=== PATIENT | female | born 1930 | race Caucasian/White ===

== ENCOUNTER 2016-09-01 13:20 | Emergency (ER) | payer MEDICARE ==
[~2016-09-01] VITALS: Ht 165.1 cm; Wt 69.9 kg
[~2016-09-01 13:20] MED LIST: AMOX500C3 PO; ASPEC81 PO; CHOL400C7 PO; CZR25 PO; EZET10TA63 PO; FSM70 PO; ISOS30TA51 PO; LEVO25TA PO; METO25TA3 PO; OMEP20CA59 PO; PRAV20TA PO; VENL150T33 PO
[2016-09-01 13:27] VITALS: TEMP 36.6; Ht 165.1 cm; Wt 69.9 kg
--- NOTE | 2016-09-01 14:08 | DIAGNOSTIC IMAGING REPORT ---
Right wrist 4 views CLINICAL HISTORY: FALL, RT WRIST DEFORMITY Right. Right wrist pain. COMPARISON STUDY: None. FINDINGS: Distal radius and ulnar fractures demonstrating both dorsal displacement and angulation. The distal radius fracture demonstrates 8 mm of dorsal displacement and 1 cm of overlap. The bones are osteopenic. The carpal bones appear intact. The distal radius fracture is slightly comminuted but does not clearly demonstrate intra-articular extension. Severe osteoarthritis at the first carpometacarpal joint. Diffuse soft tissue swelling. IMPRESSION: Displaced distal right radius and ulnar fractures as described above. Electronically signed by: Wilian Rios M.D. 09/01/2016 2:06 PM Dictated Date/Time: 09/01/2016 2:03 PM
--- NOTE | 2016-09-01 14:25 | EMERGENCY ROOM VISIT NOTE ---
History Report prepared by Vince: Javi Small Under the Supervision of: Dr. Emily Prakash D.O. First contact with patient: 13:31 Chief Complaint: FALL Stated Complaint: FALL/WRIST PAIN History of Present Illness The patient is a 86 year old female who presents to the Emergency Room after a fall that occurred prior to arrival. The patient was pushing her chair back trying to get up from the table when she fell down. She thinks she reached out and tried to put her hand out to catch her fall. She complains of right wrist pain that she rates as an 8 out of 10 in severity. She denies hitting her head, knee pain, or any other medical complaints at this time. Source of History: patient Onset: prior to arrival Position: wrist (right) Symptom Intensity: 8/10 in severity Note: Other associated symptoms: wrist pain Denies: hitting her head, knee pain, or any other medical complaints at this time Review of Systems See HPI for pertinent positives & negatives. A total of 10 systems reviewed and were otherwise negative. Past Medical & Surgical Medical Problems: (1) Benign essential hypertension (2) Carotid artery stenosis (3) Carotid bruit (4) Cerebrovascular disease (5) Chronic osteoarthritis (6) Depression (7) Mitral valve regurgitation (8) Osteoporosis (9) presyncope (10) Vitamin D deficiency Family History No pertinent family history Social History Smoking Status: Never Smoker Alcohol Use: none Marital Status: Housing Status: lives alone Occupation Status: retired Current/Historical Medications Scheduled Aspirin (Aspirin Ec), 81 MG PO DAILY Cholecalciferol (Vitamin D3), 1 TAB PO DAILY Donepezil Hydrochloride (Aricept), 10 MG PO DAILY Ezetimibe (Zetia), 10 MG PO DAILY Isosorbide Mononitrate Ext Rel (Imdur Ext Rel), 30 MG PO DAILY Levothyroxine Sodium (Synthroid), 50 MCG PO DAILY Metoprolol Succinate (Toprol Xl), 0.5 TAB PO DAILY Omeprazole (Prilosec), 20 MG PO HS Pravastatin Sodium (Pravachol), 1 TAB PO QPM Selenium Sulfide (Selsun Blue), 1 APPLN TOP 3XWK Venlafaxine Hcl (Venlafaxine Hcl Er), 150 MG PO DAILY Scheduled PRN Acetaminophen Tab (Tylenol), 650 MG PO Q4 PRN for Pain or Fever Jpudfja-Sxqdiph-Utctxw Salicyl (Bengay Ultra Strength), 1 APPLN TOP BID PRN for Pain Oxycodone Ir (Roxicodone Ir), 5 MG PO Q6H PRN for Pain Allergies Coded Allergies: Codeine (Verified Allergy, Mild, 09/01/16) Egg (Verified Allergy, Mild, `, 09/01/16) Physical Exam Vital Signs Date Time Temp Pulse Resp B/P Pulse Ox O2 Delivery O2 Flow Rate FiO2 09/01/16 18:14 70 20 130/70 99 09/01/16 15:09 63 20 191/78 97 Room Air 09/01/16 13:27 36.6 61 20 168/77 97 Room Air Physical Exam HEENT: Head - normocephalic and atraumatic. Pupils are equal, round, and reactive to light. Extraocular eye muscles are intact and sclera are anicteric. Ears - bilaterally patent canals with no evidence of hemotympanum. Nose - moist nasal mucosa without evidence of trauma or discharge. Mouth - moist buccal mucosa with no trauma to the teeth or signs of malocclusion. Neck: The neck is supple and there is no pain to palpation over the posterior cervical spine and no obvious step-offs or deformities. There is no JVD or tracheal deviation. Chest: There are no signs of deformities, contusions or abrasions to the chest wall. There is no obvious crepitus or paradoxical chest rise. Heart: Regular, rate, and rhythm. There is a normal S1 and S2 with no murmurs, clicks, or gallops appreciated. Lungs: Clear to auscultation bilaterally with no wheezes, rales, or rhonchi. Abdomen: Soft, completely nontender, nondistended, with good bowel sounds. There is no sign of trauma such as contusions, abrasions or penetrations. There are no palpable pulsatile masses or hepatosplenomegaly. There is no guarding, rigidity, or rebound noted. Pelvis: Stable to rock and compression. Extremities: Right wrist deformity. Good radial pulses. No other signs of trauma. There are easily palpable peripheral pulses. Neuro: The patient is awake and alert. She has a history of dementia. She is moving all 4 extremities. Otherwise, neuro exam is unremarkable. Medical Decision & Procedures ER Provider Diagnostic Interpretation: X-ray results as stated below per interpretation by me and the radiologist: Right wrist 4 views CLINICAL HISTORY: FALL, RT WRIST DEFORMITY Right. Right wrist pain. COMPARISON STUDY: None. FINDINGS: Distal radius and ulnar fractures demonstrating both dorsal displacement and angulation. The distal radius fracture demonstrates 8 mm of dorsal displacement and 1 cm of overlap. The bones are osteopenic. The carpal bones appear intact. The distal radius fracture is slightly comminuted but does not clearly demonstrate intra-articular extension. Severe osteoarthritis at the first carpometacarpal joint. Diffuse soft tissue swelling. IMPRESSION: Displaced distal right radius and ulnar fractures as described above. Electronically signed by: Wilian Rios M.D. 09/01/2016 2:06 PM Dictated Date/Time: 09/01/2016 2:03 PM Medications Administered Medications (Trade) Dose Ordered Sig/Qiana Route Start Time Stop Time Status Last Admin Dose Admin Oxycodone HCl (Roxicodone Immediate Rel Tab) 5 mg NOW STAT PO 09/01/16 14:43 09/01/16 14:44 DC 09/01/16 15:07 5 MG Procedure Medications: Oxycodone HCl PO ED Course 1350: Past medical records reviewed. The patient was evaluated in room C2. A complete history and physical exam was performed. The patient went for x-ray of the right wrist. 1443: Ordered Oxycodone HCl 5 mg PO. I reviewed the results of the x-ray with the patient 1545: At this time, I discussed the patient's case with Carl Pandey PA-C - [employer] [facility] and he agreed to accept the patient for further evaluation. 1600: Ordered Lidocaine HCl 20 ml INFIL For a hematoma block. Carl was able to reduce the fracture. The patient will follow-up with Dr. Jacobsen next week. Medical Decision The patient is an 86 year old female who presents to the ED with wrist pain. Differential diagnosis includes forearm fracture, wrist fracture, and hand fracture. The patient suffered a fall at [facility]. She did not strike her head or lose consciousness. She has no other signs of trauma except for the right wrist. She has no other complaints of pain. The patient was given a prescription of oxycodone to use for pain. She will follow up with orthopedics next week. [facility] Drug Monitoring Program Search Results: patient reviewed within database, no issues identified Consults Time Called: 1540 Consulting Physician: Carl Wall PA-C- [facility] Returned Call: [phone] At this time, I discussed the patient's case with Carl Pandey PA-C and he agreed to accept the patient for further evaluation. Impression Primary Impression: Wrist fracture Additional Impression: Fall Scribe Attestation The scribe's documentation has been prepared under my direction and personally reviewed by me in its entirety. I confirm that the note above accurately reflects all work, treatment, procedures, and medical decision making performed by me. Departure Information Dispostion Being Evaluated By Hospitalist (Carl Pandey PA-C - [facility]) Prescriptions Oxycodone Ir (Roxicodone Ir) 5 Mg Tab 5 MG PO Q6H Y for Pain, #20 TAB Prov: Emily Prakash D.O. 09/01/16 Referrals [facility] (PCP) Patient Instructions My [facility] Additional Instructions Rest with the right wrist elevated. Apply ice. Follow up with Ortho as directed. Use Oxy-IR every 6 hours for pain. Problem Qualifiers
[2016-09-01] MEDS ORDERED: ACET325T96 PO (14:41)
[2016-09-01] MEDS ORDERED: CHOL1000 PO (14:41)
[2016-09-01] MEDS ORDERED: ISOS30TA3 PO (14:41)
[2016-09-01] MEDS ORDERED: DONE10TA12 PO (14:41)
[2016-09-01] MEDS ORDERED: PRAV40TA PO (14:41)
[2016-09-01] MEDS ORDERED: LEVO50TA PO (14:41)
[2016-09-01] MEDS ORDERED: ASPI81TA28 PO (14:41)
[2016-09-01] MEDS ORDERED: OXYCODONE HCL IR 5 MG TAB (IMMEDIATE RELEASE) PO STA (14:43)
[2016-09-01] MEDS ORDERED: SELE1SHA3 TOP (14:44)
[2016-09-01] MEDS ORDERED: LINICRE52 TOP (14:44)
[2016-09-01] MEDS ORDERED: XYLOCAINE 1%/SOD BICARB 20 ML VIAL INFIL ONE (16:00)
[2016-09-01] MEDS ORDERED: OXYC1TAB3 PO (16:12)
--- NOTE | 2016-09-01 17:32 | DIAGNOSTIC IMAGING REPORT ---
RIGHT WRIST 2 VIEW CLINICAL HISTORY: Fracture status post reduction COMPARISON: 09/01/2016 DISCUSSION: There is been interval reduction of the previously identified fractures of the distal radius and ulna.r the distal radial fracture demonstrates 4 mm of radial displacement and 4 mm of dorsal displacement. The articular surface demonstrates 2 degrees of dorsal tilt there is been application of a fiberglass cast. There are advanced degenerative changes within the first carpometacarpal joint. IMPRESSION: Interval reduction of the recently described fractures of the radius and ulna with application of a fiberglass cast Electronically signed by: Sebastian Bennett M.D. 09/01/2016 5:30 PM Dictated Date/Time: 09/01/2016 5:27 PM
[2016-09-01 18:14] VITALS: BP 130/70; PULSE 70; O2SAT 99
--- NOTE | 2016-09-01 19:52 | CONSULTATION REPORT ---
DATE OF CONSULTATION: 09/01/2016 REASON FOR CONSULT: Right wrist fracture. HISTORY OF PRESENT ILLNESS: The patient is an 86-year-old white female who resides at [facility] in [place]. She does not really remember much of how she had fallen; however, her previous notes from Dr. Prakash's initial exam states that she was thinking she was pushing her chair back trying to get up from the table when she had fallen down. She doesn't remember hitting her head; denies LOC. Denies SOB, CP prior to the fall. She had a notable deformity to her right wrist and pain and unable to move the wrist and she was brought to the Emergency Room. She was seen by the staff, x-rays were taken and it was found that she had a displaced right distal radius and ulna fracture of the right wrist. We have been consulted to take care of her wrist fracture at this time. PAST MEDICAL HISTORY: Hypertension, carotid artery stenosis, cerebral vascular disease, osteoarthritis, depression, mitral valve regurgitation, osteoporosis, history of presyncope ,vitamin D deficiency and question of dementia. MEDICATIONS: Aspirin 81 mg p.o. daily, vitamin D3 one tab p.o. daily, Aricept 10 mg p.o. daily, Zetia 10 mg p.o. daily, Imdur extended release 30 mg p.o. daily, levothyroxine 50 mcg p.o. daily, metoprolol 1/2 tab p.o. daily, omeprazole 20 mg at bedtime, pravastatin 1 tab p.o. q.p.m., Selsun blue 1 application topically 3 times a week, venlafaxine extended release 150 mg p.o. daily, acetaminophen 650 mg p.o. q. 4 hours p.r.n. pain or fever, BenGay 1 application topically b.i.d. p.r.n., OxyIR 5 mg p.o. q. 6 hours p.r.n. pain. ALLERGIES: CODEINE AND EGGS. REVIEW OF SYSTEMS: As per Emergency Room history and physical. PHYSICAL EXAMINATION: VITAL SIGNS: Done at 3:00 showed pulse 63, respirations 20, BP 191/78, pulse ox 97% on room air. GENERAL: The patient is an elderly white female who appears her stated age. She is awake and alert but somewhat confused to place and time and remembering her fall that she had had previously during the day. Again, she is pleasant and cooperative and complaining some pain in her right wrist, although she states it is much better since having a pain medication given to her. EXTREMITIES: On examination of her right upper extremity, she has a noted a bag of ice over her right wrist. Upon removing the bag of ice, she has a moderate deformity of the distal radius and ulna. She was tender on palpation over these areas and has mild to moderate swelling noted with just a hint of ecchymosis beginning. She is able to move all her fingers of her right hand. She has good sensation of all 5 fingers and capillary refill is less than 2 seconds. She is obviously unable to move the wrist. She denies any pain in her right elbow and/or right shoulder. There are no open wounds noted next to the area of fracture. ASSESSMENT: Displaced right distal radius and ulna fracture. PLAN: The patient will need a closed reduction and splinting with follow up in Dr. Jacobsen's office next week. PROCEDURES IN THE EMERGENCY ROOM: The patient's right wrist was injected over the dorsal area with 0.5% lidocaine without epinephrine, a hematoma block was achieved and was given a few moments to let the medication work. At point in time, the patient's right hand was placed in finger traps and some initial amount of 10 pounds of weight was applied to the sling that had been placed around her right elbow. At that point in time, the wrist slowly reduced and an additional 5 pounds was added for a brief time to complete the reduction. A small amount of longitudinal traction was applied to the right wrist to completely finish getting the wrist back into a better position. The patient tolerated the procedure well and at that time a sugar tong splint was applied to the right upper extremity without difficulty. After the splint was applied, she was noted to have good sensation of all fingers of the right hand. She was still moving her fingers of her right hand very well and capillary refill was less than 2 seconds. FINAL PLAN: The patient has already been set up to return to [facility]. She has been given a prescription for pain medication by Dr. Prakash and patient will be directed to Dr. Jacobsen's office next week for definitive care of her right wrist fracture. OLIVIA
== END 2016-09-01 18:17 | disposition home or self-care (01) ==
LOC: EDBD 13:20 → C.EDC 13:22
DX: S52.501A Unspecified fracture of the lower end of right radius, initial encounter for closed fracture (principal); S52.601A Unspecified fracture of lower end of right ulna, initial encounter for closed fracture; W19.XXXA Unspecified fall, initial encounter; Y92.199 Unspecified place in other specified residential institution as the place of occurrence of the external cause; I10 Essential (primary) hypertension; F32.9 Major depressive disorder, single episode, unspecified; M81.0 Age-related osteoporosis without current pathological fracture; E55.9 Vitamin D deficiency, unspecified; Z79.82 Long term (current) use of aspirin; Z79.899 Other long term (current) drug therapy

== ENCOUNTER → 2016-10-26 | Outpatient (CLI) | payer MEDICARE ==
[~2016-10-26] MED LIST changes: +ACET325T96 PO; -AMOX500C3 PO; -ASPEC81 PO; +ASPI81TA28 PO; +CHOL1000 PO; -CHOL400C7 PO; -CZR25 PO; +DONE10TA12 PO; -FSM70 PO; +ISOS30TA3 PO; -ISOS30TA51 PO; -LEVO25TA PO; +LEVO50TA PO; +LINICRE52 TOP; +OXYC1TAB3 PO; -PRAV20TA PO; +PRAV40TA PO; +SELE1SHA3 TOP
[2016-10-27 15:44] LABS: URINE APPEARANCE TURBID (CLEAR); URINE BILIRUBIN NEG (NEG); URINE COLOR DK YELLOW; URINE EPITHELIAL CELL AUTO >30 /lpf (0-5); URINE NITRITE NEG (NEG); URINE SPECIFIC GRAVITY 1.031 (1.000-1.030); UROBILINOGEN NEG (NEG)
[2016-10-27 15:46] LABS: MANUAL MICROSCOPIC REQUIRED? NO; REVIEW REQ? YES
== END | disposition home or self-care (01) ==
LOC: C.LABSPEC 16:10
PROVIDERS: ATTEND Internal Medicine
DX: R41.0 Disorientation, unspecified (principal)

== ENCOUNTER → 2016-12-20 | Outpatient (CLI) | payer MEDICARE ==
[2016-12-20 12:40] LABS: HEMATOCRIT 41.1 % (37-47); MEAN CELL VOLUME 98.1 fL (80-100); MEAN CORPUSCULAR HEMOGLOBIN 30.8 pg (25-34); MEAN CORPUSCULAR HGB CONC 31.4 g/dl (32-36); MEAN PLATELET VOLUME 9.8 fL (7.4-10.4); PLATELET COUNT 289 K/uL (130-400); RED BLOOD COUNT 4.19 M/uL (4.2-5.4); WHITE BLOOD COUNT 6.46 K/uL (4.8-10.8)
[2016-12-20 13:08] LABS: BLOOD UREA NITROGEN 22 mg/dl (7-18); BUN/CREATININE RATIO 22.1 (10-20); CALCIUM 9.3 mg/dl (8.5-10.1); CARBON DIOXIDE 26 mmol/L (21-32); CHLORIDE 113 mmol/L (98-107); GLUCOSE 84 mg/dl (70-99); POTASSIUM 4.1 mmol/L (3.5-5.1); SODIUM 146 mmol/L (136-145)
[2016-12-20 13:21] LABS: THYROID STIMULATING HORMONE 0.608 uIu/ml (0.300-4.500)
== END | disposition home or self-care (01) ==
LOC: C.LABSPEC 11:14
PROVIDERS: ATTEND Internal Medicine
DX: E03.9 Hypothyroidism, unspecified (principal)

== ENCOUNTER → 2017-05-18 | Outpatient (CLI) | payer MEDICARE ==
[~2017-05-18] MED LIST changes: -OXYC1TAB3 PO
[2017-05-18 14:53] LABS: URINE APPEARANCE CLOUDY (CLEAR); URINE BILIRUBIN NEG (NEG); URINE COLOR YELLOW; URINE NITRITE NEG (NEG); URINE SPECIFIC GRAVITY 1.015 (1.000-1.030); UROBILINOGEN NEG (NEG); ZZUR CULT IF INDIC CLEAN CATCH YES
[2017-05-18 14:56] LABS: MANUAL MICROSCOPIC REQUIRED? NO; REVIEW REQ? YES
== END | disposition home or self-care (01) ==
LOC: C.LABOUTLO 13:55
PROVIDERS: ATTEND Internal Medicine
DX: Z01.89 Encounter for other specified special examinations (principal)

== ENCOUNTER 2017-07-10 11:43 | Emergency (ER) | payer MEDICARE ==
[2017-07-10 11:47] VITALS: TEMP 36.4
--- NOTE | 2017-07-10 12:15 | DIAGNOSTIC IMAGING REPORT ---
CT SCAN OF THE BRAIN WITHOUT IV CONTRAST CLINICAL HISTORY: Fall. COMPARISON STUDY: CT of the brain dated 04/15/2013. TECHNIQUE: Unenhanced axial CT scan of the brain is performed from the vertex to the skull base. FINDINGS: Brain parenchyma: There are age-related involutional changes noting moderate confluent subcortical and periventricular microangiopathic change. There is no hemorrhage, mass effect, or evidence of acute territorial ischemia by CT criteria. Chronic lacunar infarcts identified in the caudate heads and the right thalamus. Arana-white matter is preserved. No extra-axial fluid collection is seen. Ventricles, sulci, cisterns: Prominent secondary to involutional change. Intracranial vasculature: There is atherosclerotic calcification of the cavernous carotid and vertebral arteries. Calvarium: The skeletal structures are osteopenic. No depressed calvarial fracture is seen. Sinuses and mastoids: There is chronic-appearing/calcified debris within left sphenoid sinus. The remaining visualized paranasal sinuses are clear. The mastoid air cells are well pneumatized. Orbits: The bony orbits are grossly intact. There are bilateral ocular lens implants. IMPRESSION: Senescent changes as above with no hemorrhage, mass effect, or evidence of acute territorial ischemia by CT criteria. Electronically signed by: Navarro Valerio M.D. 07/10/2017 12:13 PM Dictated Date/Time: 07/10/2017 12:11 PM
--- NOTE | 2017-07-10 12:23 | EMERGENCY ROOM VISIT NOTE ---
History Report prepared by Vince: Carol Arguelles Under the Supervision of: Dr. Geovanny Krishnamurthy D.O. 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 She is a resident in the dementia unit at [facility]. Per EMS, the patient had a witnessed fall this morning. She fell backwards and hit her head with no LOC. Per nursing staff, the patient is at her baseline mental status. She denies headache, vision changes, weakness/numbness in legs, nausea, vomiting, or diarrhea. She denies any pain or injury to joints or extremities. HPI is limited secondary to patient 's dementia. 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 Past Medical & Surgical Medical Problems: (1) Benign essential hypertension (2) Carotid artery stenosis (3) Carotid bruit (4) Cerebrovascular disease (5) Chronic osteoarthritis (6) Depression (7) Mitral valve regurgitation (8) Osteoporosis (9) presyncope (10) Vitamin D deficiency Family History No pertinent family history Social History Smoking Status: Never Smoker Alcohol Use: none Marital Status: Housing Status: lives alone Occupation Status: retired Current/Historical Medications Scheduled Aspirin (Aspirin Ec), 81 MG PO DAILY Cholecalciferol (Vitamin D3), 1 TAB PO DAILY Donepezil Hydrochloride (Aricept), 10 MG PO DAILY Ezetimibe (Zetia), 10 MG PO DAILY Isosorbide Mononitrate Ext Rel (Imdur Ext Rel), 30 MG PO DAILY Levothyroxine Sodium (Synthroid), 50 MCG PO DAILY Metoprolol Succinate (Toprol Xl), 0.5 TAB PO DAILY Omeprazole (Prilosec), 20 MG PO HS Pravastatin Sodium (Pravachol), 1 TAB PO QPM Selenium Sulfide (Selsun Blue), 1 APPLN TOP 3XWK Venlafaxine Hcl (Venlafaxine Hcl Er), 150 MG PO DAILY Scheduled PRN Acetaminophen Tab (Tylenol), 650 MG PO Q4 PRN for Pain or Fever Rsgvxct-Yooesrq-Vswslq Salicyl (Bengay Ultra Strength), 1 APPLN TOP BID PRN for Pain Allergies Coded Allergies: Codeine (Verified Allergy, Mild, 09/01/16) Egg (Verified Allergy, Mild, `, 09/01/16) Morphine (Verified Allergy, Mild, ukn, 07/10/17) listed on pt's paperwork from [facility] Sulfamethoxazole w/Trimethoprim (Unverified Allergy, Mild, uk, 07/10/17) listed on pt's paperwork from [facility] Uncoded Allergies: EGG PRODUCTS (Allergy, Mild, ukn, 07/10/17) listed on pt's paperwork from [facility] FLU VACCINATION (Allergy, Unknown, [facility], 07/10/17) listed on pt's paperwork from [facility] Physical Exam Vital Signs Date Time Temp Pulse Resp B/P (MAP) Pulse Ox O2 Delivery O2 Flow Rate FiO2 07/10/17 13:37 163/68 07/10/17 12:48 60 16 155/72 98 Room Air 07/10/17 11:47 36.4 62 16 158/58 95 Room Air Physical Exam GENERAL: Sitting up in bed. No acute distress. Non-toxic. HEAD: Contusion to posterior occiput. EYE EXAM: normal conjunctiva, PERRL and EOM's grossly intact OROPHARYNX: no exudate, no erythema, lips, buccal mucosa, and tongue normal and mucous membranes are moist NOSE: No septal hematoma. NECK: supple, no nuchal rigidity, no adenopathy, non-tender CHEST: stable to compression anteriorly and posteriorly LUNGS: clear to auscultation. Normal chest wall mechanics HEART: no murmurs, S1 normal and S2 normal ABDOMEN: abdomen soft, non-tender, normo-active bowel sounds, no masses, no rebound or guarding. PELVIS: stable to compression anteriorly and posteriorly BACK: Back is symmetrical on inspection and there is no deformity, no midline tenderness, no CVA tenderness. UPPER EXTREMITIES: full active and passive range of motion of all joints without tenderness to palpation LOWER EXTREMITIES: full active and passive range of motion of all joints without tenderness to palpation NEURO EXAM: Awake, alert and follows commands. At baseline per report. No focal deficits. Medical Decision & Procedures ER Provider Diagnostic Interpretation: Radiology results as stated below per my review and the radiologist's interpretation: CT SCAN OF THE BRAIN WITHOUT IV CONTRAST CLINICAL HISTORY: Fall. COMPARISON STUDY: CT of the brain dated 04/15/2013. TECHNIQUE: Unenhanced axial CT scan of the brain is performed from the vertex to the skull base. FINDINGS: Brain parenchyma: There are age-related involutional changes noting moderate confluent subcortical and periventricular microangiopathic change. There is no hemorrhage, mass effect, or evidence of acute territorial ischemia by CT criteria. Chronic lacunar infarcts identified in the caudate heads and the right thalamus. Arana-white matter is preserved. No extra-axial fluid collection is seen. Ventricles, sulci, cisterns: Prominent secondary to involutional change. Intracranial vasculature: There is atherosclerotic calcification of the cavernous carotid and vertebral arteries. Calvarium: The skeletal structures are osteopenic. No depressed calvarial fracture is seen. Sinuses and mastoids: There is chronic-appearing/calcified debris within left sphenoid sinus. The remaining visualized paranasal sinuses are clear. The mastoid air cells are well pneumatized. Orbits: The bony orbits are grossly intact. There are bilateral ocular lens implants. IMPRESSION: Senescent changes as above with no hemorrhage, mass effect, or evidence of acute territorial ischemia by CT criteria. Electronically signed by: Navarro Valerio M.D. 07/10/2017 12:13 PM Dictated Date/Time: 07/10/2017 12:[address] DOSE: 908.92 mGy.cm HISTORY: Neck pain. fall hit head TECHNIQUE: Multiaxial CT images of the cervical spine were performed and reformatted in the sagittal and coronal plane without the use of contrast. A dose lowering technique was utilized adhering to the principles of ALARA. COMPARISON: None. FINDINGS: No fractures identified within the cervical spine. Moderate to severe disc space narrowing at C5-T1. Mild disc space narrowing at C4-C5. There is 2.5 mm of anterolisthesis of C4 and C5. This favors long-standing degenerative change. Moderate to severe facet osteoarthritis. A few of the right lower cervical spine facets are fused. The C1-C2 interval and prevertebral soft tissues are intact. No pneumothorax. IMPRESSION: No fractures within the cervical spine. Degenerative changes as described above. Electronically signed by: Wilian Rios M.D. 07/10/2017 12:27 PM Dictated Date/Time: 07/10/2017 12:19 PM ED Course ED COURSE: Vital signs were reviewed and showed situational. The patients medical record was reviewed The above diagnostic studies were performed and reviewed. ED treatments and interventions as stated above. 1144: The patient was evaluated in room C6. A complete history and physical examination was performed. 1236: Upon reevaluation, the patient is doing well. She will be discharged home to [facility]. Based on the patients age, coexisting illnesses, exam and lab findings the decision to treat as an outpatient was made. The patient remained stable while under my care. The patient appeared well at the time of discharge. Medical Decision Differential diagnoses include major intracranial, cervical, spinal, thoracic, abdominal, pelvic and neurologic injury. Fracture, contusion, sprain, strain, laceration, abrasions included as well. Patient is an 87-year-old female who presents to ER following a mechanical [facility] She is from the dementia unit. Patient does not recall events secondary to dementia.. There was no loss consciousness. Patient has no complaints. CT head and cervical spine were negative. Per report at her baseline. Nonfocal moving all extremities. She is updated at bedside and discharged back to dementia unit. Discussed with Pt concerning signs and symptoms to watch out for. Pt was instructed to follow up with their PCP and discussed with the patient their option to return to the ED at anytime for persistent or worsening symptoms. The appropriate anticipatory guidance and out-patient management, including indications for return to the emergency department, were explained at length to the patient and understood. Medication Reconcilliation Current Medication List: was personally reviewed by me Blood Pressure Screening Patient's blood pressure: Elevated blood pressure Blood pressure disposition: Elevated BP felt to be situational Impression Primary Impression: Fall Additional Impression: Head contusion Scribe Attestation The scribe's documentation has been prepared under my direction and personally reviewed by me in its entirety. I confirm that the note above accurately reflects all work, treatment, procedures, and medical decision making performed by me. Departure Information Dispostion Home / Self-Care [facility] Forms HOME CARE DOCUMENTATION FORM, IMPORTANT VISIT INFORMATION Patient Instructions Falls Preventing, My [facility] Additional Instructions Please follow up with your primary care doctor with in the next 24 hours. Any worsening of your symptoms, please return to the ED immediately. This includes any fevers greater than 100.4, worsening pain, confusion, persistent nausea or vomiting, weakness or numbness in arms or legs, or any other concerning signs or symptoms from your standpoint. Please take Tylenol as needed for pain. Problem Qualifiers Primary Impression: Fall Encounter type: sequela Qualified Codes: W19.XXXS - Unspecified fall, sequela Additional Impression: Head contusion Encounter type: initial encounter Contusion of head detail: unspecified part of head Qualified Codes: S00.93XA - Contusion of unspecified part of head , initial encounter
--- NOTE | 2017-07-10 12:28 | DIAGNOSTIC IMAGING REPORT ---
CERVICAL SPINE CT CT DOSE: 908.92 mGy.cm HISTORY: Neck pain. fall hit head TECHNIQUE: Multiaxial CT images of the cervical spine were performed and reformatted in the sagittal and coronal plane without the use of contrast. A dose lowering technique was utilized adhering to the principles of ALARA. COMPARISON: None. FINDINGS: No fractures identified within the cervical spine. Moderate to severe disc space narrowing at C5-T1. Mild disc space narrowing at C4-C5. There is 2.5 mm of anterolisthesis of C4 and C5. This favors long-standing degenerative change. Moderate to severe facet osteoarthritis. A few of the right lower cervical spine facets are fused. The C1-C2 interval and prevertebral soft tissues are intact. No pneumothorax. IMPRESSION: No fractures within the cervical spine. Degenerative changes as described above. Electronically signed by: Wilian Rios M.D. 07/10/2017 12:27 PM Dictated Date/Time: 07/10/2017 12:19 PM
[2017-07-10 12:48] VITALS: PULSE 60; O2SAT 98
[2017-07-10 13:37] VITALS: BP 163/68
== END 2017-07-10 13:38 | disposition home or self-care (01) ==
LOC: EDBD 11:43 → C.EDC 11:44
DX: S00.93XA Contusion of unspecified part of head, initial encounter (principal); W19.XXXA Unspecified fall, initial encounter; W22.8XXA Striking against or struck by other objects, initial encounter; F03.90 Unspecified dementia, unspecified severity, without behavioral disturbance, psychotic disturbance, mood disturbance, and anxiety; I10 Essential (primary) hypertension; M19.90 Unspecified osteoarthritis, unspecified site; M81.0 Age-related osteoporosis without current pathological fracture; E55.9 Vitamin D deficiency, unspecified; F32.9 Major depressive disorder, single episode, unspecified; Z79.82 Long term (current) use of aspirin; Z79.899 Other long term (current) drug therapy

== ENCOUNTER 2017-08-20 11:08 | Emergency (ER) | payer MEDICARE ==
[~2017-08-20] VITALS: Ht 157.5 cm; Wt 59.7 kg
[2017-08-20 11:15] VITALS: TEMP 36.5; Ht 157.5 cm; Wt 59.7 kg
[2017-08-20] MEDS ORDERED: LORA-741 PO (11:38)
[2017-08-20] MEDS ORDERED: ASPCH81X PO (11:42)
--- NOTE | 2017-08-20 12:07 | EMERGENCY ROOM VISIT NOTE ---
History Report prepared by Vince: Carol Arguelles Under the Supervision of: Dr. Zoraida Covarrubias M.D. 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 Per nursing staff, the patient had an unwitnessed fall possibly during the night. The patient was found in bed with a laceration to the forehead and bruising to the eyebrow. The patient has her forehead wrapped in gauze. The patient is unsure of how she fell , though states that she may have slipped on a floor. The patient lives at [facility]. She denies any hip pain, abdominal pain, leg pain, back pain. HPI is limited secondary to patient's mental state. 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 She denies any hip pain or leg pain. Review of Systems ROS is limited secondary to patient's mental state. Past Medical & Surgical Medical Problems: (1) Benign essential hypertension (2) Carotid artery stenosis (3) Carotid bruit (4) Cerebrovascular disease (5) Chronic osteoarthritis (6) Depression (7) Mitral valve regurgitation (8) Osteoporosis (9) presyncope (10) Vitamin D deficiency Family History No pertinent family history Social History Smoking Status: Unknown if Ever Smoked Alcohol Use: none Marital Status: Housing Status: lives alone Occupation Status: retired Current/Historical Medications Scheduled Aspirin (Aspirin Chewable), 81 MG PO QAM Cholecalciferol (Vitamin D3), 1,000 UNITS PO DAILY Donepezil Hydrochloride (Aricept), 10 MG PO DAILY Ezetimibe (Zetia), 10 MG PO DAILY Isosorbide Mononitrate Ext Rel (Imdur Ext Rel), 30 MG PO DAILY Levothyroxine Sodium (Synthroid), 50 MCG PO DAILY Metoprolol Succinate (Toprol Xl), 12.5 MG PO QAM Omeprazole (Prilosec), 20 MG PO QAM Pravastatin Sodium (Pravachol), 40 MG PO QAM Venlafaxine Hcl (Venlafaxine Hcl Er), 150 MG PO DAILY Scheduled PRN Acetaminophen Tab (Tylenol), 650 MG PO Q4 PRN for Pain or Fever Lorazepam (Ativan), 0.25 MG PO Q8 PRN for Anxiety Allergies Coded Allergies: Codeine (Verified Allergy, Mild, 08/20/17) Egg (Verified Allergy, Mild, `, 08/20/17) Morphine (Verified Allergy, Mild, ukn, 08/20/17) listed on pt's paperwork from [facility] Sulfamethoxazole w/Trimethoprim (Unverified Allergy, Mild, ukn, 08/20/17) listed on pt's paperwork from [facility] Uncoded Allergies: EGG PRODUCTS (Allergy, Mild, ukn, 07/10/17) listed on pt's paperwork from [facility] FLU VACCINATION (Allergy, Unknown, [facility], 07/10/17) listed on pt's paperwork from [facility] Physical Exam Vital Signs Date Time Temp Pulse Resp B/P (MAP) Pulse Ox O2 Delivery O2 Flow Rate FiO2 08/20/17 14:40 76 18 167/96 98 08/20/17 13:05 59 08/20/17 11:15 36.5 67 20 206/88 98 Room Air Physical Exam Vital signs reviewed. General: Pleasantly confused, in no significant distress. HEENT: No scleral icterus, PERRLA, neck supple. Atraumatic. Large hematoma to left forehead along the superior orbital ridge. Small skin tear, no active bleeding. Some ecchymosis to inferior orbital region. Cardiovascular: Regular rate and rhythm, no extra sounds. Pulmonary: Clear to auscultation bilaterally, normal work of breathing. Abdomen: Soft, nontender, nondistended, positive bowel sounds. Musculoskeletal: Atraumatic, no peripheral edema. Pelvis is stable, no tenderness with ROM of hips. Neurologic: Patient awake alert and pleasantly confused, equal strength in all 4 extremities. Cranial nerves 2 through 12 grossly intact. Skin: Warm, dry, no rash Medical Decision & Procedures ER Provider Diagnostic Interpretation: Radiology results as stated below per my review and radiologist interpretation: CHEST ONE VIEW PORTABLE CLINICAL HISTORY: fall trauma COMPARISON STUDY: 05/08/2011 FINDINGS: Lungs are clear. Chronic pleural reactive changes left base. Diaphragms are smooth. IMPRESSION: Chronic change. No acute process. The above report was generated using voice recognition software. It may contain grammatical, syntax or spelling errors. Electronically signed by: Stanley Salinas M.D. 08/20/2017 12:11 PM Dictated Date/Time: 08/20/2017 12:10 PM HEAD WITHOUT CONTRAST (CT) CT DOSE: 537.48 mGy.cm HISTORY: Trauma. Mental status change. fall, CHI TECHNIQUE: Multiaxial CT images of the head were performed without the use of intravenous contrast. A dose lowering technique was utilized adhering to the principles of ALARA. Comparison: 07/10/2017 Findings: The paranasal sinuses and mastoid air cells are clear. Left periorbital and left prefrontal extracranial soft tissue edematous change. Small amount of air within the soft tissues presumably posttraumatic. No well-defined acute bony abnormality. Findings of scattered areas of atrophy atrophy and encephalomalacia chronic basis. No acute intracranial hemorrhage. No midline shift. Small old pre-existing infarct basal ganglia on the right. Impression: 1. Chronic intracranial changes with no acute intracranial abnormality. 2. extracranial soft tissue edema/hematoma in the left prefrontal and periorbital region. The above report was generated using voice recognition software. It may contain grammatical, syntax or spelling errors. Electronically signed by: Stanley Salinas M.D. 08/20/2017 12:33 PM Dictated Date/Time: 08/20/2017 12:30 PM Laboratory Results 08/20/17 12:43 Red Blood Count 4.18, Mean Corpuscular Volume 96.9, Mean Corpuscular Hemoglobin 31.3, Mean Corpuscular Hemoglobin Concent 32.3, Mean Platelet Volume 9.7, Neutrophils (%) (Auto) 89.5, Lymphocytes (%) (Auto) 5.6, Monocytes (%) (Auto) 3.7, Eosinophils (%) (Auto) 0.8, Basophils (%) (Auto) 0.2, Neutrophils # (Auto) 11.95, Lymphocytes # (Auto) 0.74, Monocytes # (Auto) 0.49, Eosinophils # (Auto) 0.11, Basophils # (Auto) 0.02 08/20/17 12:43 Test 08/20/17 12:43 White Blood Count 13.33 K/uL (4.8-10.8) Red Blood Count 4.18 M/uL (4.2-5.4) Hemoglobin 13.1 g/dL (12.0-16.0) Hematocrit 40.5 % (37-47) Mean Corpuscular Volume 96.9 fL (80-100) Mean Corpuscular Hemoglobin 31.3 pg (25-34) Mean Corpuscular Hemoglobin Concent 32.3 g/dl (32-36) Platelet Count 274 K/uL (130-400) Mean Platelet Volume 9.7 fL (7.4-10.4) Neutrophils (%) (Auto) 89.5 % Lymphocytes (%) (Auto) 5.6 % Monocytes (%) (Auto) 3.7 % Eosinophils (%) (Auto) 0.8 % Basophils (%) (Auto) 0.2 % Neutrophils # (Auto) 11.95 K/uL (1.4-6.5) Lymphocytes # (Auto) 0.74 K/uL (1.2-3.4) Monocytes # (Auto) 0.49 K/uL (0.11-0.59) Eosinophils # (Auto) 0.11 K/uL (0-0.5) Basophils # (Auto) 0.02 K/uL (0-0.2) RDW Standard Deviation 49.2 fL (36.4-46.3) RDW Coefficient of Variation 13.9 % (11.5-14.5) Immature Granulocyte % (Auto) 0.2 % Immature Granulocyte # (Auto) 0.02 K/uL (0.00-0.02) Prothrombin Time 10.8 SECONDS (9.0-12.0) Prothromb Time International Ratio 1.0 (0.9-1.1) Activated Partial Thromboplast Time 23.5 SECONDS (21.0-31.0) Partial Thromboplastin Ratio 0.9 Anion Gap 4.0 mmol/L (3-11) Est Creatinine Clear Calc Drug Dose 25.9 ml/min Estimated GFR () 47.2 Estimated GFR (Non- 40.7 BUN/Creatinine Ratio 20.9 (10-20) Calcium Level 9.1 mg/dl (8.5-10.1) Magnesium Level 2.3 mg/dl (1.8-2.4) Total Bilirubin 0.3 mg/dl (0.2-1) Direct Bilirubin < 0.1 mg/dl (0-0.2) Aspartate Amino Transf (AST/SGOT) 20 U/L (15-37) Alanine Aminotransferase (ALT/SGPT) 23 U/L (12-78) Alkaline Phosphatase 85 U/L (45-117) Total Protein 7.2 gm/dl (6.4-8.2) Albumin 3.5 gm/dl (3.4-5.0) Laboratory results per my review. ECG Indication: other (fall) Rate (beats per minute): 66 Rhythm: sinus with SA Findings: LBBB, left axis deviation Comparison ECG Date: LBBB is new when compared to 03/16/2012 ED Course 1135: Past medical records reviewed. The patient was evaluated in room C5. A complete history and physical examination was performed. 1330: I reassessed the patient at this time. She is feeling better and resting comfortably. I discussed the results and treatment plan with the patient. I answered all pertaining questions that she had. She expressed understanding and verbalized agreement. The patient will be discharged home. Medical Decision Differential diagnosis: Etiologies such as fracture, dislocation, intra-abdominal, pneumothorax, intrathoracic , intracranial, neurologic, as well as other traumatic pathologies were entertained. This patient was evaluated and appeared to be in no significant distress. Physical examination is consistent with a closed head injury. CT scan of the head reveals no evidence of acute intracranial abnormality. EKG reveals a sinus rhythm with a left bundle-branch block this does appear to be new however it is compared to an EKG in 2012. Although patient is suffering from memory impairment, she seems to be asymptomatic. Chest x-ray is clear. Laboratory work is unrevealing. I suspect the patient's hypertension is related to situational stressors. The patient will be discharged back to [facility] for further care. Patient's son is at the bedside. They were encouraged to see her primary care provider as soon as possible for follow-up. She will return to the ER for worsening of symptoms or any medical concerns. Medication Reconcilliation Current Medication List: was personally reviewed by me Blood Pressure Screening Patient's blood pressure: Elevated blood pressure Blood pressure disposition: Elevated BP felt to be situational Impression Primary Impression: Closed head injury Additional Impression: Fall Scribe Attestation The scribe's documentation has been prepared under my direction and personally reviewed by me in its entirety. I confirm that the note above accurately reflects all work, treatment, procedures, and medical decision making performed by me. Departure Information Dispostion Home / Self-Care Referrals [facility] (PCP) Forms HOME CARE DOCUMENTATION FORM, IMPORTANT VISIT INFORMATION Patient Instructions My [facility] Additional Instructions Diagnosis: Closed head injury, fall Wash the abrasion with warm water and soap once daily and apply antibiotic ointment with a dressing. Your tetanus status is up-to-date, no further immunizations were given during this visit. Monitor for signs of head injury including vomiting, mental status changes, severe headache. Return to the emergency department. Follow-up with her primary care physician within the next several days for reevaluation. Return to the ER for worsening of symptoms or any medical concerns. Problem Qualifiers
--- NOTE | 2017-08-20 12:12 | DIAGNOSTIC IMAGING REPORT ---
CHEST ONE VIEW PORTABLE CLINICAL HISTORY: fall trauma COMPARISON STUDY: 05/08/2011 FINDINGS: Lungs are clear. Chronic pleural reactive changes left base. Diaphragms are smooth. IMPRESSION: Chronic change. No acute process. The above report was generated using voice recognition software. It may contain grammatical, syntax or spelling errors. Electronically signed by: Stanley Salinas M.D. 08/20/2017 12:11 PM Dictated Date/Time: 08/20/2017 12:10 PM
--- NOTE | 2017-08-20 12:35 | DIAGNOSTIC IMAGING REPORT ---
HEAD WITHOUT CONTRAST (CT) CT DOSE: 537.48 mGy.cm HISTORY: Trauma. Mental status change. fall, CHI TECHNIQUE: Multiaxial CT images of the head were performed without the use of intravenous contrast. A dose lowering technique was utilized adhering to the principles of ALARA. Comparison: 07/10/2017 Findings: The paranasal sinuses and mastoid air cells are clear. Left periorbital and left prefrontal extracranial soft tissue edematous change. Small amount of air within the soft tissues presumably posttraumatic. No well-defined acute bony abnormality. Findings of scattered areas of atrophy atrophy and encephalomalacia chronic basis. No acute intracranial hemorrhage. No midline shift. Small old pre-existing infarct basal ganglia on the right. Impression: 1. Chronic intracranial changes with no acute intracranial abnormality. 2. extracranial soft tissue edema/hematoma in the left prefrontal and periorbital region. The above report was generated using voice recognition software. It may contain grammatical, syntax or spelling errors. Electronically signed by: Stanley Salinas M.D. 08/20/2017 12:33 PM Dictated Date/Time: 08/20/2017 12:30 PM
[2017-08-20 12:58] LABS: BASO % 0.2 %; BASO ABS # 0.02 K/uL (0-0.2); EOS % 0.8 %; EOS ABS # 0.11 K/uL (0-0.5); HEMATOCRIT 40.5 % (37-47); HEMOGLOBIN 13.1 g/dL (12.0-16.0); IG# 0.02 K/uL (0.00-0.02); LYMPH % 5.6 %; LYMPH ABS # 0.74 K/uL (1.2-3.4); MEAN CELL VOLUME 96.9 fL (80-100); MEAN CORPUSCULAR HEMOGLOBIN 31.3 pg (25-34); MEAN CORPUSCULAR HGB CONC 32.3 g/dl (32-36); MEAN PLATELET VOLUME 9.7 fL (7.4-10.4); MONO % 3.7 %; MONO ABS # 0.49 K/uL (0.11-0.59); NEUT % 89.5 %; NEUT ABS # 11.95 K/uL (1.4-6.5); PLATELET COUNT 274 K/uL (130-400); RED CELL DISTRIBUTION WIDTH CV 13.9 % (11.5-14.5); RED CELL DISTRIBUTION WIDTH SD 49.2 fL (36.4-46.3); WHITE BLOOD COUNT 13.33 K/uL (4.8-10.8)
[2017-08-20 13:12] LABS: PTT PATIENT 23.5 SECONDS (21.0-31.0)
[2017-08-20 13:18] LABS: ALBUMIN 3.5 gm/dl (3.4-5.0); ALT/SGPT 23 U/L (12-78); AST/SGOT 20 U/L (15-37); BLOOD UREA NITROGEN 25 mg/dl (7-18); CALCIUM 9.1 mg/dl (8.5-10.1); CARBON DIOXIDE 29 mmol/L (21-32); CREATININE 1.19 mg/dl (0.60-1.20); GLUCOSE 113 mg/dl (70-99); POTASSIUM 4.4 mmol/L (3.5-5.1); SODIUM 140 mmol/L (136-145)
[2017-08-20 13:21] LABS: ALKALINE PHOSPHATASE 85 U/L (45-117); TOTAL PROTEIN 7.2 gm/dl (6.4-8.2)
[2017-08-20 14:40] VITALS: BP 167/96; PULSE 76; O2SAT 98
== END 2017-08-20 14:42 | disposition home or self-care (01) ==
LOC: EDBD 11:08 → C.EDC 11:10
DX: S09.90XA Unspecified injury of head, initial encounter (principal); W19.XXXA Unspecified fall, initial encounter; I10 Essential (primary) hypertension; M81.0 Age-related osteoporosis without current pathological fracture; E55.9 Vitamin D deficiency, unspecified; F32.9 Major depressive disorder, single episode, unspecified; Z79.82 Long term (current) use of aspirin; Z79.899 Other long term (current) drug therapy

== ENCOUNTER 2019-01-23 11:13 | Inpatient (IN) ==
[2019-01-23] MEDS ORDERED: SODIUM CHLORIDE 0.9% 1000ML 1,000 ML IV ONE (12:05)
[2019-01-23 12:12] LABS: iSTAT Creatinine 1.4 mg/dl (0.6-1.3); iSTAT Hemoglobin 13.9 g/dl (12.0-16.0); iSTAT Ionized Calcium 1.16 mmol/l (1.12-1.32); iSTAT Potassium 4.9 mEq/L (3.3-5.0)
[2019-01-23 12:13] LABS: Basophils # (auto) 0.02 K/uL (0-0.2); Basophils % (auto) 0.2 %; Eosinophils # (auto) 0.21 K/uL (0-0.5); Eosinophils % (auto) 2.1 %; Hematocrit (blood only) 42.2 % (37-47); Hemoglobin 13.6 g/dL (12.0-16.0); Immature Granulocytes # (auto) 0.03 K/uL (0.00-0.02); Immature Granulocytes % (auto) 0.3 %; Lymphocytes # (auto) 1.21 K/uL (1.2-3.4); Lymphocytes % (auto) 12.3 %; Mean Corpuscular Hgb Conc 32.2 g/dL (32-36); Mean Corpuscular Volume 97.2 fL (80-100); Mean Platelet Volume 9.6 fL (7.4-10.4); Monocytes # (auto) 0.64 K/uL (0.11-0.59); Monocytes % (auto) 6.5 %; Neutrophils # (auto) 7.69 K/uL (1.4-6.5); Neutrophils % (auto) 78.6 %; Platelet Count 253 K/uL (130-400); RDW Coefficient of Variation 13.5 % (11.5-14.5); RDW Standard Deviation 47.9 fL (36.4-46.3); Red Blood Count 4.34 M/uL (4.2-5.4)
[2019-01-23 12:28] LABS: Albumin Level 3.2 gm/dl (3.4-5.0); BUN Creatinine Ratio 18.1 (10-20); Creatinine Clr Calc Pharmacy 25.3 ml/min; Est GFR (African American) 42.1; Est GFR (Non-African American) 36.3; Magnesium 2.4 mg/dl (1.8-2.4)
[2019-01-23 12:47] LABS: Albumin Globulin Ratio 0.9 (0.9-2); Bilirubin,Total 0.4 mg/dl (0.2-1); Creatine Kinase MB 13.3 ng/ml (0.5-3.6); Globulin 3.5 gm/dl (2.5-4.0); Total Protein 6.7 gm/dl (6.4-8.2); Troponin I 1.55 ng/ml (0-0.045)
[2019-01-23] MEDS ORDERED: ASPIRIN CHEW 324 MG PO STA (12:58)
[2019-01-23] MEDS ORDERED: Heparin IV Standard *NO* Bolus IV ONE (12:58)
[2019-01-23] MEDS ORDERED: Heparin Adult STANDARD Wt-Based Dextrose 5% 25,000 units/500 mL IV SCH (12:59)
--- NOTE | 2019-01-23 13:03 | XRay Report ---
SINGLE VIEW CHEST CLINICAL HISTORY: Weakness. FINDINGS: An AP, portable, upright chest radiograph is compared to study dated 04/16/2018. The examinat ion is degraded by portable technique and patient rotation. The heart is enlarged and there is ather osclerotic calcification of the thoracic aorta. The pulmonary vasculature is noncongested. Chronic in terstitial thickening is similar to previous. A calcified granuloma is noted at the left apex. The gerry ngs and pleural spaces are otherwise clear. No pneumothorax is seen. The skeletal structures are oste openic. The bony thorax is grossly intact. IMPRESSION: Cardiomegaly with no active disease in the chest. Electronically signed by: Navarro Valerio M.D. 01/23/2019 1:02 PM
[2019-01-23 13:13] LABS: INR 1.1 (0.9-1.1); Partial Thromboplastin Ratio 0.8; Partial Thromboplastin Time 21.6 Seconds (21.0-31.0); Prothrombin Time 10.9 Seconds (9.0-12.0)
[2019-01-23] MEDS ORDERED: HEPARIN 25000 UNIT/500 ML D5W IV ONE (13:33)
[2019-01-23] MEDS ORDERED: Heparin IV Low Dose *NO* Bolus IV ONE (14:00)
--- NOTE | 2019-01-23 14:34 | History & Physical Report ---
Date of Service January 23, 2019 Assessment & Plan (1) Syncope: This is an 88-year-old female with a PMH of chronic systolic heart failure, valvular dysfunction, chronic left bundle branch block, CAD, Alzheimer's disease, CKD 3 and mood disorder who presents from [facility] care after a witnessed syncopal event this morning. Patient seen in collaboration with Dr. Torres. Please see addendum for plan. Syncope possible secondary to cardiac arrhythmia/bradycardia On the telemetry patient bradycardia down, leading to 4-second pause, Heart rate recovered but back to 50s Updated cardiology Plan of care discussed by cardiology with the patient's son Emmanuel Chaudhry, POA, does not want pacemaker, does not want any heroic major cardiac intervention Conservative approach only Patient is DNR/DNI We will avoid beta-clint AV node clint medications overall prognosis remains poor (2) Non-ST elevation CT (NSTEMI): Presented with syncope, possible secondary to the conduction delay/disturbance secondary to severe underlying coronary artery disease/non-ST elevated CT Found to have elevated troponin, new left bundle branch block noted on EKG Echo shows a new wall motion abnormality, worsening of EF 20% compared to echo done earlier this year updated family members, son Emmanuel Chaudhry and [id number] at bedside Understands the poor prognosis, Continue medical management, cardiology consulted, appreciate input (3) Chronic systolic (congestive) heart failure: Secondary to severe ischemic cardiomyopathy, Echocardiogram today 02/09/2009 shows significantly reduced ejection fraction wi th no wall motion abnormality Patient does not appear to be volume overloaded Avoid IV fluids, Clinically dry we will not order any IV Lasix at that point Overall prognosis remains guarded (4) CKD (chronic kidney disease), stage III: Follow renal function, and avoid contrast studies NSAID (5) Left bundle branch block: Secondary to non-ST elevated CT, new findings, with worsening of ejection fraction severe ischemic cardiomyopathy Poor prognosis (6) Carotid artery stenosis: Continue aspirin (7) Mood disorder: (8) Metabolic encephalopathy: Acute delirium, agitation after arrival to PCU Getting out of bed, throwing stuff at the nursing Trying to take IV sites off Requiring one-to-one observation Patient calmed down briefly well family son and daughter in law was visiting in room Discussed poor prognosis and progression of disease process, patient has baseline advanced dementia, developed acute agitation in the setting of acute CT, cardiac arrhythmia/ change of surroundings Continue to provide support, Patient takes scheduled dose of Ativan, ordered for PRN Ativan as needed watch for rebound agitation One-to-one observation when family is not present full fall risk CODE STATUS: Discussed with POA, son Emmanuel Chaudhry, DNR/DNI Does not want any heroic measures does not help want any intervention, medical management if possible for symptom control Disposition: Patient is a resident at [facility] Family is concerned as patient has been having progressive cognitive and functional decline will not be able to return back to [facility], already has been considering transition to [facility] Social service consulted for discharge planning assistance History of Present Illness Chief Complaint: Syncopal event at [facility] today Primary Care Provider: [facility] This is an 88-year-old female with a PMH of chronic systolic heart failure, valvular dysfunction, chronic left bundle branch block, CAD, Alzheimer's disease, CKD 3 and mood disorder who presents from [facility] after a witnessed syncopal event this morning. History primarily obtained from family at bedside and staff from [facility] over the phone due to patient's advanced dementia. Staff is reportedly getting patient up this morning and ready for the day when she sat down on the toilet and then lost consciousness. Staff were able to keep her from falling and she became responsive with sternal rub after approximately 1 minute. Was sent to ED for further evaluation. Patient initially tachycardic at 126. Saturating at 96% on room air. No leukocytosis. Hemoglobin stable at 13.6. Creatinine slightly elevated from baseline at 1.3 (baseline ~1.1). Troponin elevated at 1.55. Difficult to obtain ROS due to patient's dementia but she denies pain of any kind, including headache, chest pain or abdominal pain. Per facility, patient is able to ambulate with walker at baseline and eat independently. Has poor p.o. intake at baseline and supplements with boost drink twice daily. Is currently at cognitive baseline, per staff. Family at bedside (including medical POA) confirmed DNR status as well as desired to avoid intervention when possible. Allergies Allergy/AdvReac Type Severity Reaction Status Date / Time Bactrim Allergy Mild ukn Unverified 08/20/17 11:36 codeine Allergy Mild Unknown Verified 01/23/19 13:41 egg Allergy Mild ` Verified 01/23/19 13:41 morphine Allergy Mild ukn Verified 01/23/19 13:41 sulfamethoxazole Allergy Mild ukn Unverified 01/23/19 13:41 trimethoprim Allergy Mild ukn Unverified 01/23/19 13:41 EGG PRODUCTS Allergy Mild ukn Uncoded 01/23/19 13:41 FLU VACCINATION Allergy Unknown ukn Uncoded 01/23/19 13:41 Home Medications Home Medications Medication Instructions Recorded Confirmed Type acetaminophen 650 mg PO Q4 PRN 04/16/18 01/23/19 History aspirin [Aspirin Childrens] 81 mg PO DAILY 04/16/18 01/23/19 History cholecalciferol (vitamin D3) 1,000 unit PO DAILY 04/16/18 01/23/19 History [Vitamin D3] donepezil 10 mg PO DAILY 04/16/18 01/23/19 History ezetimibe 10 mg PO DAILY 04/16/18 01/23/19 History isosorbide mononitrate 30 mg PO DAILY 04/16/18 01/23/19 History levothyroxine 50 mcg PO DAILY 04/16/18 01/23/19 History lorazepam 0.5 mg PO DAILY 04/16/18 01/23/19 History metoprolol succinate 12.5 mg PO DAILY 04/16/18 01/23/19 History omeprazole 20 mg PO DAILY 04/16/18 01/23/19 History pravastatin 40 mg PO DAILY 04/16/18 01/23/19 History venlafaxine 150 mg PO DAILY 04/16/18 01/23/19 History food supplemt, lactose-reduced 180 ea PO BID 01/23/19 01/23/19 History [Ensure] Past Med/Surg History Family History Other Coronary heart disease Social History Preferred Language: Khmer Communication Ability: Effective Beliefs That Will Affect Care: None marital status: / Current Living Situation: Long Term Current Living Situation Comment: Dave current occupational status: retired Other Information That Helps Us Care for You: No Feels Safe at Home: Yes Safety Concerns: Feels Safe At This Time Smoking Status: Never smoker Hx Alcohol Use: No Hx Substance Use: No Review of Systems Review of Systems: Unobtainable due to cognitive status Physical Exam Physical Exam: General Appearance: WD/WN, no apparent distress, resting comfortably, pleasantly confused Head: normocephalic, atraumatic Eyes: normal inspection, PERRL, EOMI ENT: hearing grossly normal, pharynx normal (dry mucous membranes) Neck: supple, no JVD, no adenopathy Respiratory/Chest: lungs clear to auscultation. No wheezes, rales or rhonci. No respiratory distress or accessory muscle use Cardiovascular: tachycardic rhythm with gallop, systolic ejection murmur, normal peripheral pulses, no peripheral edema Abdomen/GI: normal bowel sounds, soft, non-tender to palpation Extremities/Musculoskelatal: normal inspection, no calf tenderness, normal capillary refill, no pedal edema Neurologic/Psych: alert & oriented to person only Skin: normal color, warm/dry Results & Data Vital Signs (Past 12 Hours) Vital Signs Temp Pulse Resp BP Pulse Ox 01/23/19 13:50 119 H 19 96 01/23/19 13:40 119 H 24 96 01/23/19 13:31 119 H 16 97 01/23/19 13:30 120 H 14 142/86 H 95 01/23/19 13:20 124 H 14 97 01/23/19 13:10 123 H 13 96 01/23/19 13:01 123 H 16 96 01/23/19 13:00 122 H 16 114/79 96 01/23/19 12:50 122 H 15 95 01/23/19 12:40 124 H 15 95 01/23/19 12:31 125 H 12 96 01/23/19 12:30 126 H 15 104/68 96 01/23/19 12:20 125 H 15 95 01/23/19 12:10 127 H 17 94 01/23/19 12:06 93 01/23/19 12:01 127 H 16 100/67 94 01/23/19 12:00 126 H 18 73/63 L 93 01/23/19 11:50 127 H 17 94 01/23/19 11:40 128 H 12 94 01/23/19 11:30 128 H 16 92 01/23/19 11:24 36.5 C 126 H 20 107/69 93 01/23/19 11:20 127 H 18 93 01/23/19 11:19 126 H 13 107/64 95 Laboratory Results Short CBC 01/23/19 01/23/19 01/23/19 Range/Units 11:53 11:56 11:56 WBC 9.80 (4.8-10.8) K/uL RBC 4.34 (4.2-5.4) M/uL Hgb 13.6 (12.0-16.0) g/dL POC Hgb (12.0-16.0) g/dl Hct 42.2 (37-47) % POC Hct (37-47) % MCV 97.2 (80-100) fL MCH 31.3 (25-34) pg MCHC 32.2 (32-36) g/dL RDW Std Deviation 47.9 H (36.4-46.3) fL RDW Coeff of Juan 13.5 (11.5-14.5) % Plt Count 253 (130-400) K/uL MPV 9.6 (7.4-10.4) fL Immature Gran % (Auto) 0.3 % Neut % (Auto) 78.6 % Lymph % (Auto) 12.3 % Allen % (Auto) 6.5 % Eos % (Auto) 2.1 % Baso % (Auto) 0.2 % Immature Gran # (Auto) 0.03 H (0.00-0.02) K/uL Neut # (Auto) 7.69 H (1.4-6.5) K/uL Lymph # (Auto) 1.21 (1.2-3.4) K/uL Allen # (Auto) 0.64 H (0.11-0.59) K/uL Eos # (Auto) 0.21 (0-0.5) K/uL Baso # (Auto) 0.02 (0-0.2) K/uL PT 10.9 (9.0-12.0) Seconds INR 1.1 (0.9-1.1) APTT 21.6 (21.0-31.0) Seconds PTT Ratio 0.8 POC Sodium (135-144) mEq/L Sodium 143 (136-145) mmol/L POC Potassium (3.3-5.0) mEq/L Potassium 5.0 (3.5-5.1) mmol/L POC Chloride (101-112) mEq/L Chloride 111 H (98-107) mmol/L Carbon Dioxide 30 (21-32) mmol/L POC Total CO2 (24-31) mEq/l Anion Gap 2.0 L (3-11) POC Anion Gap (16-25) mmol/L POC BUN (7-18) mg/dl BUN 24 H (7-18) mg/dl Creatinine 1.30 H (0.6-1.2) mg/dl POC Creatinine (0.6-1.3) mg/dl Est Cr Clr Drug Dosing 25.3 ml/min Est GFR ( Amer) 42.1 Est GFR (Non-Af Amer) 36.3 BUN/Creatinine Ratio 18.1 (10-20) Glucose 115 H (70-99) mg/dl POC Glucose (other) (70-99) mg/dl Calcium 9.0 (8.5-10.1) mg/dl POC Ioniz Calcium Kenji (1.12-1.32) mmol/l Magnesium 2.4 (1.8-2.4) mg/dl Total Bilirubin 0.4 (0.2-1) mg/dl AST 26 (15-37) U/L ALT 24 (12-78) U/L Alkaline Phosphatase 78 (45-117) U/L Total Creatine Kinase 108 (26-192) U/L CK-MB (CK-2) 13.3 H (0.5-3.6) ng/ml CK/CKMB % Calc 12.3 H (0-3.0) Troponin I 1.550 H* (0-0.045) ng/ml Total Protein 6.7 (6.4-8.2) gm/dl Albumin 3.2 L (3.4-5.0) gm/dl Globulin 3.5 (2.5-4.0) gm/dl Albumin/Globulin Ratio 0.9 (0.9-2) TSH 1.930 (0.300-4.500) uIu/ml 01/23/19 Range/Units 12:00 WBC (4.8-10.8) K/uL RBC (4.2-5.4) M/uL Hgb (12.0-16.0) g/dL POC Hgb 13.9 (12.0-16.0) g/dl Hct (37-47) % POC Hct 41 (37-47) % MCV (80-100) fL MCH (25-34) pg MCHC (32-36) g/dL RDW Std Deviation (36.4-46.3) fL RDW Coeff of Juan (11.5-14.5) % Plt Count (130-400) K/uL MPV (7.4-10.4) fL Immature Gran % (Auto) % Neut % (Auto) % Lymph % (Auto) % Allen % (Auto) % Eos % (Auto) % Baso % (Auto) % Immature Gran # (Auto) (0.00-0.02) K/uL Neut # (Auto) (1.4-6.5) K/uL Lymph # (Auto) (1.2-3.4) K/uL Allen # (Auto) (0.11-0.59) K/uL Eos # (Auto) (0-0.5) K/uL Baso # (Auto) (0-0.2) K/uL PT (9.0-12.0) Seconds INR (0.9-1.1) APTT (21.0-31.0) Seconds PTT Ratio POC Sodium 142 (135-144) mEq/L Sodium (136-145) mmol/L POC Potassium 4.9 (3.3-5.0) mEq/L Potassium (3.5-5.1) mmol/L POC Chloride 106 (101-112) mEq/L Chloride (98-107) mmol/L Carbon Dioxide (21-32) mmol/L POC Total CO2 26 (24-31) mEq/l Anion Gap (3-11) POC Anion Gap 16.0 (16-25) mmol/L POC BUN 25 H (7-18) mg/dl BUN (7-18) mg/dl Creatinine (0.6-1.2) mg/dl POC Creatinine 1.4 H (0.6-1.3) mg/dl Est Cr Clr Drug Dosing ml/min Est GFR ( Amer) Est GFR (Non-Af Amer) BUN/Creatinine Ratio (10-20) Glucose (70-99) mg/dl POC Glucose (other) 123 H (70-99) mg/dl Calcium (8.5-10.1) mg/dl POC Ioniz Calcium Kenji 1.16 (1.12-1.32) mmol/l Magnesium (1.8-2.4) mg/dl Total Bilirubin (0.2-1) mg/dl AST (15-37) U/L ALT (12-78) U/L Alkaline Phosphatase (45-117) U/L Total Creatine Kinase (26-192) U/L CK-MB (CK-2) (0.5-3.6) ng/ml CK/CKMB % Calc (0-3.0) Troponin I (0-0.045) ng/ml Total Protein (6.4-8.2) gm/dl Albumin (3.4-5.0) gm/dl Globulin (2.5-4.0) gm/dl Albumin/Globulin Ratio (0.9-2) TSH (0.300-4.500) uIu/ml BMP 01/23/19 11:56 Sodium 143 Potassium 5.0 Chloride 111 H Carbon Dioxide 30 BUN 24 H Creatinine 1.30 H Glucose 115 H Calcium 9.0 Cardiac Enzymes 01/23/19 Range/Units 11:56 Total Creatine Kinase 108 (26-192) U/L CK-MB (CK-2) 13.3 H (0.5-3.6) ng/ml Troponin I 1.550 H* (0-0.045) ng/ml Liver Function 01/23/19 Range/Units 11:56 Total Bilirubin 0.4 (0.2-1) mg/dl AST 26 (15-37) U/L ALT 24 (12-78) U/L Alkaline Phosphatase 78 (45-117) U/L Albumin 3.2 L (3.4-5.0) gm/dl Diagnostic Findings CXR: IMPRESSION: Cardiomegaly with no active disease in the chest. ECG Rhythm: sinus tachycardia Findings: + 1st degree AV block and + LBBB
--- NOTE | 2019-01-23 15:26 | CT Scan Report ---
CT head/brain wo con CLINICAL HISTORY: 88 years-old Female with syncope. Acute syncope TECHNIQUE: Multiple axial CT images of the head were obtained without contrast. A dose lowering tech nique was utilized adhering to the principles of ALARA. CT DOSE: 912.23 mGycm COMPARISON: Head CT 04/16/2018. FINDINGS: Motion degraded exam. No acute intracranial hemorrhage, midline shift, intracranial mass, hydrocephal us, territorial ischemia or abnormal extra-axial collection. Age-related involutional changes with ex vacuo ventriculomegaly. Patchy white matter hypodensities suggest chronic microvascular ischemic dis ease. Cerebral vascular calcifications are noted. 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 The calvarium is intact. Moderate mucosal thickening with air/secretions about the left sphenoid sin us. Mastoid air cells and middle ear cavities are clear. Soft tissues are unremarkable. Prior bilater al cataract repair. IMPRESSION: Motion degraded exam without acute intracranial abnormality identified. The above report was generated using voice recognition software. It may contain grammatical, syntax o r spelling errors. Electronically signed by: Torrey Pino M.D. 01/23/2019 3:25 PM
[2019-01-23] MEDS ORDERED: POLYETHYLENE (MIRALAX) 17 GM PACK PO PRN (15:41)
[2019-01-23] MEDS ORDERED: MAGNESIUM HYDROXIDE SUSP 30 ML UDC PO PRN (15:41)
[2019-01-23] MEDS ORDERED: ACETAMINOPHEN 325 MG TAB PO PRN (15:41)
[2019-01-23] MEDS ORDERED: NITROGLYCERIN SL 0.4 MG/TAB TAB SL PRN (15:41)
[2019-01-23] MEDS ORDERED: ALUMINUM/MAGNESIUM SUSP 30 ML UDC PO PRN (15:41)
[2019-01-23] MEDS ORDERED: METOPROLOL TARTRATE 1 MG/ML VIAL IV STA (16:07)
[2019-01-23] MEDS ORDERED: LORazepam 1 MG/2 ML VIAL IV STA (17:02)
--- NOTE | 2019-01-23 17:05 | Cardiology Consultation ---
Date of Consultation January 23, 2019 Assessment & Plan (1) Non-ST elevation [place] (NSTEMI): (2) Left bundle branch block: (3) Syncope: He 8-year-old female with a previously documented history of dementia presents with acute on chronic confusion, transient syncopal episode. She is awake now. She has a long-standing history of chronic left bundle branch block, and valvular heart disease including aortic stenosis mitral regurgitation tricuspid regurgitation for which the patient and her family had a long-standing history of electing for nonoperative management. On presentation she was found to have a mildly elevated troponin of 1.5. Agree with unfractionated heparin empirically for 48 hours for medical therapy of suspected non-ST segment elevation microinfarction. If she is taking oral medications will continue aspirin, isosorbide, metoprolol, pravastatin and Zetia. She just received a dose of IV beta-clint for her tachycardia. She is not a candidate for invasive cardiac procedure. History of Present Illness Attending Physician: Roseline Torres MD History of Present Illness Rehana Chaudhry is an 88 year old female seen in cardiology consultation per the request of Dr Torres for evaluation of elevated troponin. This is the first opportunity that I have had to meet the patient. Per the nursing staff, I unfortunately just missed her family. When I arrived to see her in the PCU in room 236-1 she was being supervised in a one-to-one fashion by a fa[employer] certified powerplant mechanic. The patient was agitated, combative, and I could not complete a physical exam as she started punching into the air. Per review of the recent outpatient note from our clinic performed by Stanley Decker PA-C, the patient has baseline dementia and is a resident of [facility]. The patient was reportedly transferred from the [facility] to the [facility] emergency department today. Staff there reported getting patient out of bed this morning and ready for the day and when she sat down on the toilet she reportedly lost consciousness. She became transiently unresponsive and became more responsive after 1 minute of sternal rub. Allergies Allergy/AdvReac Type Severity Reaction Status Date / Time Bactrim Allergy Mild ukn Unverified 08/20/17 11:36 codeine Allergy Mild Unknown Verified 01/23/19 13:41 egg Allergy Mild ` Verified 01/23/19 13:41 morphine Allergy Mild ukn Verified 01/23/19 13:41 sulfamethoxazole Allergy Mild ukn Unverified 01/23/19 13:41 trimethoprim Allergy Mild ukn Unverified 01/23/19 13:41 EGG PRODUCTS Allergy Mild ukn Uncoded 01/23/19 13:41 FLU VACCINATION Allergy Unknown ukn Uncoded 01/23/19 13:41 Home Medications Home Medications Medication Instructions Recorded Confirmed Type acetaminophen 650 mg PO Q4 PRN 04/16/18 01/23/19 History aspirin [Aspirin Childrens] 81 mg PO DAILY 04/16/18 01/23/19 History cholecalciferol (vitamin D3) 1,000 unit PO DAILY 04/16/18 01/23/19 History [Vitamin D3] donepezil 10 mg PO DAILY 04/16/18 01/23/19 History ezetimibe 10 mg PO DAILY 04/16/18 01/23/19 History isosorbide mononitrate 30 mg PO DAILY 04/16/18 01/23/19 History levothyroxine 50 mcg PO DAILY 04/16/18 01/23/19 History lorazepam 0.5 mg PO DAILY 04/16/18 01/23/19 History metoprolol succinate 12.5 mg PO DAILY 04/16/18 01/23/19 History omeprazole 20 mg PO DAILY 04/16/18 01/23/19 History pravastatin 40 mg PO DAILY 04/16/18 01/23/19 History venlafaxine 150 mg PO DAILY 04/16/18 01/23/19 History food supplemt, lactose-reduced 180 ea PO BID 01/23/19 01/23/19 History [Ensure] Patient History Family History Other Coronary heart disease Social History Preferred Language: Montenegrin Communication Ability: Effective Beliefs That Will Affect Care: None marital status: / Current Living Situation: Correction Current Living Situation Comment: [place] current occupational status: retired Other Information That Helps Us Care for You: No Feels Safe at Home: Yes Safety Concerns: Feels Safe At This Time Smoking Status: Never smoker Hx Alcohol Use: No Hx Substance Use: No Review of Systems Review of Systems: Unobtainable due to reduced consciousness Physical Exam Constitutional: + cachectic Respiratory: -Not performed due to patient's combativeness Cardiovascular: -Auscultation cannot be performed due to the patient's combativeness -No edema observed Neurologic: Not oriented to place. Combative Moves all 4 extremities. Results & Data Vital Signs (Past 12 Hours) Vital Signs Temp Pulse Pulse Resp BP BP Pulse Ox 01/23/19 16:25 36.3 C L 125 H 18 157/82 H 95 01/23/19 16:23 125 H 157/82 H 01/23/19 14:40 120 H 18 94 01/23/19 14:31 120 H 11 L 96 01/23/19 14:30 121 H 17 115/83 95 01/23/19 14:20 121 H 0 L 95 01/23/19 14:10 121 H 16 96 01/23/19 14:01 122 H 15 95 01/23/19 14:00 121 H 14 118/78 95 01/23/19 13:50 119 H 19 96 01/23/19 13:40 119 H 24 96 01/23/19 13:31 119 H 16 97 01/23/19 13:30 120 H 14 142/86 H 95 01/23/19 13:20 124 H 14 97 01/23/19 13:10 123 H 13 96 01/23/19 13:01 123 H 16 96 01/23/19 13:00 122 H 16 114/79 96 01/23/19 12:50 122 H 15 95 01/23/19 12:40 124 H 15 95 01/23/19 12:31 125 H 12 96 01/23/19 12:30 126 H 15 104/68 96 01/23/19 12:20 125 H 15 95 01/23/19 12:10 127 H 17 94 01/23/19 12:06 93 01/23/19 12:01 127 H 16 100/67 94 01/23/19 12:00 126 H 18 73/63 L 93 01/23/19 11:50 127 H 17 94 01/23/19 11:40 128 H 12 94 01/23/19 11:30 128 H 16 92 01/23/19 11:24 36.5 C 126 H 20 107/69 93 01/23/19 11:20 127 H 18 93 01/23/19 11:19 126 H 13 107/64 95 Laboratory Results Cardiac Enzymes 01/23/19 Range/Units 11:56 AST 26 (15-37) U/L CK-MB (CK-2) 13.3 H (0.5-3.6) ng/ml Troponin I 1.550 H* (0-0.045) ng/ml Coagulation 01/23/19 Range/Units 11:53 PT 10.9 (9.0-12.0) Seconds APTT 21.6 (21.0-31.0) Seconds CBC 01/23/19 Range/Units 11:56 WBC 9.80 (4.8-10.8) K/uL RBC 4.34 (4.2-5.4) M/uL Hgb 13.6 (12.0-16.0) g/dL Hct 42.2 (37-47) % Plt Count 253 (130-400) K/uL Neut # (Auto) 7.69 H (1.4-6.5) K/uL Lymph # (Auto) 1.21 (1.2-3.4) K/uL [place] # (Auto) 0.64 H (0.11-0.59) K/uL Eos # (Auto) 0.21 (0-0.5) K/uL Baso # (Auto) 0.02 (0-0.2) K/uL Comprehensive Metabolic Panel 01/23/19 Range/Units 11:56 Sodium 143 (136-145) mmol/L Potassium 5.0 (3.5-5.1) mmol/L Chloride 111 H (98-107) mmol/L Carbon Dioxide 30 (21-32) mmol/L BUN 24 H (7-18) mg/dl Creatinine 1.30 H (0.6-1.2) mg/dl Glucose 115 H (70-99) mg/dl Calcium 9.0 (8.5-10.1) mg/dl AST 26 (15-37) U/L ALT 24 (12-78) U/L Alkaline Phosphatase 78 (45-117) U/L Total Protein 6.7 (6.4-8.2) gm/dl Albumin 3.2 L (3.4-5.0) gm/dl Intake and Output 01/23/19 01/23/19 01/23/19 06:59 14:59 22:59 Intake Total 432.9 / 432.9 0 / 432.9 Balance 432.9 / 432.9 0 / 432.9 Intake: IV 432.9 / 432.9 0 / 432.9 Nss 1000ML 1,000 ml @ 999 mls/ 432.9 / 432.9 0 / 432.9 hr IV .Q1H1M ONE Rx#:[id number] Other: Weight 54.9 kg 52.6 kg Patient Weight 01/24/19 06:59 Weight 52.6 kg Diagnostic Findings EKG performed today 01/23/2019 at 1550 reveals left bundle branch block with sinus tachycardia 122 bpm EKG performed 01/23/2019 11:17 AM sinus tachycardia 127 bpm with left bundle branch block and resultant repolarization abnormalities. Compared to the prior EKG tracing performed as an outpatient on 07/11/2018, left bundle branch block was noted at that time, but the axis is somewhat changed on the present EKG tracing, and sinus tachycardia is now present. The patient cooperated for an echocardiogram that was performed earlier today. The septal motion was abnormal consistent with underlying left bundle branch block, there is focal hypokinesis noted of the posterior wall, and mild to moderate global hypokinesis otherwise with severe left ventricular systolic dysfunction, LVEF in the range of 20 to 25%. Mild to moderate aortic valve stenosis was present. Moderate to severe mitral regurgitation was noted. Mild aortic valve regurgitation was noted. Compared to the prior study performed in August 2018 as an outpatient, there is been interval decline in LVEF which was 35 to 39% at that time. Medications Administered Current Inpatient Medications Acetaminophen (Tylenol) 650 mg PO Q4H PRN PRN Reason: Pain or Fever Stop: 02/22/19 15:40 Al Hydrox/Mg Hydrox/Simethicone (Maalox) 15 ml PO Q4H PRN PRN Reason: Dyspepsia Stop: 02/22/19 15:40 Aspirin (Ecotrin Ectab) 81 mg PO QAM TIFFANY Stop: 02/23/19 08:59 Donepezil HCl (Aricept) 10 mg PO DAILY TIFFANY Stop: 02/23/19 08:59 Ezetimibe (Zetia) 10 mg PO DAILY [facility] Stop: 02/23/19 08:59 Heparin Sodium/Dextrose (Heparin Sodium/Dextrose) 25,000 units in 500 mls @ 20 mls/hr IV .Q24H TIFFANY; Protocol Stop: 02/22/19 12:58 Last Admin: 01/23/19 15:49 Dose: 1,000 units/hr, 20 mls/hr Documented by: Isosorbide Mononitrate (Imdur Extended Rel) 30 mg PO DAILY [facility] Stop: 02/23/19 08:59 Levothyroxine Sodium (Synthroid) 50 mcg PO DAILYBB [facility] Stop: 02/23/19 06:29 Lorazepam (Ativan) 0.5 mg PO DAILY TIFFANY Stop: 02/23/19 08:59 Magnesium Hydroxide (Milk Of Magnesia) 30 ml PO Q12H PRN PRN Reason: Constipation Stop: 02/22/19 15:40 Metoprolol Succinate (Toprol Xl) 12.5 mg PO DAILY TIFFANY Stop: 02/23/19 08:59 Nitroglycerin (Nitrostat) 0.4 mg SL UD PRN PRN Reason: Chest Pain Stop: 02/22/19 15:40 Pantoprazole Sodium (Protonix) 40 mg PO DAILY TIFFANY Stop: 02/23/19 08:59 Polyethylene Glycol (Miralax Powder Packet) 17 gm PO DAILY PRN PRN Reason: Constipation Stop: 02/22/19 15:40 Pravastatin Sodium (Pravachol) 40 mg PO DAILY TIFFANY Stop: 02/23/19 08:59 Venlafaxine HCl (Effexor Extended Release) 150 mg PO DAILY TIFFANY Stop: 02/23/19 08:59 Vitamin D (Vitamin D3) 1,000 units PO DAILY TIFFANY Stop: 02/23/19 08:59
--- NOTE | 2019-01-23 17:24 | Cardiology Progress Note ---
Date of Service January 23, 2019 Assessment & Plan (1) Sinus pause: Shortly after I had examined the patient and completed my consultation note, the patient had a 4.5-second sinus pause noted at 5:03 PM. There was a spontaneous return of sinus rhythm and then sinus tachycardia. It would appear that her loss of consciousness episode that occurred earlier today at the personal nursing home was likely due to symptomatic transient severe bradycardia. 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 I called and updated her son and power of assistant county attorney, Emmanuel Chaudhry. I discussed with him the natural history of this kind of electrical system d isease. I discussed that pacemaker implantation could be considered to help prevent her from passing out again or even passing away. The patient is unable to consent for such a procedure. He states that it would be with her wishes he believes for her not to have the pacemaker. We discussed that if her heart was to stop we will let nature take its course. She is to continue being a DNR/DNI. I am going to discontinue her beta-clint. Updated Dr. Torres and her nurse. Results & Data Vital Signs (Past 12 Hours) Vital Signs Temp Pulse Pulse Resp BP BP Pulse Ox 01/23/19 16:25 36.3 C L 125 H 18 157/82 H 95 01/23/19 16:23 125 H 157/82 H 01/23/19 14:40 120 H 18 94 01/23/19 14:31 120 H 11 L 96 01/23/19 14:30 121 H 17 115/83 95 01/23/19 14:20 121 H 0 L 95 01/23/19 14:10 121 H 16 96 01/23/19 14:01 122 H 15 95 01/23/19 14:00 121 H 14 118/78 95 01/23/19 13:50 119 H 19 96 01/23/19 13:40 119 H 24 96 01/23/19 13:31 119 H 16 97 01/23/19 13:30 120 H 14 142/86 H 95 01/23/19 13:20 124 H 14 97 01/23/19 13:10 123 H 13 96 01/23/19 13:01 123 H 16 96 01/23/19 13:00 122 H 16 114/79 96 01/23/19 12:50 122 H 15 95 01/23/19 12:40 124 H 15 95 01/23/19 12:31 125 H 12 96 01/23/19 12:30 126 H 15 104/68 96 01/23/19 12:20 125 H 15 95 01/23/19 12:10 127 H 17 94 01/23/19 12:06 93 01/23/19 12:01 127 H 16 100/67 94 01/23/19 12:00 126 H 18 73/63 L 93 01/23/19 11:50 127 H 17 94 01/23/19 11:40 128 H 12 94 01/23/19 11:30 128 H 16 92 01/23/19 11:24 36.5 C 126 H 20 107/69 93 01/23/19 11:20 127 H 18 93 01/23/19 11:19 126 H 13 107/64 95
[2019-01-23] MEDS ORDERED: LORazepam 0.5 MG/1 ML VIAL IV PRN (18:07)
--- NOTE | 2019-01-23 18:15 | Hospitalist Progress Note ---
Date of Service January 23, 2019 Subjective Attending addendum: Care coordinated with Anne Hay PA-C Briefly this is a 88-year-old female with complex past medical history of CKD stage III, advanced dementia, hypertension hyperlipidemia Admitted from [facility] with syncope, found to be elevated troponin with new evidence of left bundle branch block and EKG Echo shows severe ischemic cardiomyopathy with new onset of wall motion abnormality and reduced EF of 20% In PCU on telemetry patient developed bradycardia arrhythmia leading to 4-second pause, then converted to sinus with rate controlled rhythm Patient input from cardiology, Family does not want pacemaker placement, understand overall poor prognosis Patient is a DNR/DNI After discussing with son: Severe delirium agitated symptoms, worsened with blood draw, vital check Pulling out telemetry monitoring During agitation patient's heart rate elevated to 120s 130s Considering all comorbidities, an acute GA leading to arrhythmia: Son ZAKI Oviedo wants patient to be comfortable only, willing to transition to hospice palliative care Patient will be transferred out of PCU, will DC IV heparin, Comfort care only No lab draws, no vital check, change of position for comfort only Palliative care consulted Social service consulted for discharge planning family [facility] Possible [facility] care to [facility] with hospice in the next 24 to 48 hours Patient is a DNR/DNI as per discussion with patient's power of attorney at law Roseline Torres MD Results & Data Vital Signs (Past 12 Hours) Vital Signs Temp Pulse Pulse Resp BP BP Pulse Ox 01/23/19 16:25 36.3 C L 125 H 18 157/82 H 95 01/23/19 16:23 125 H 157/82 H 01/23/19 14:40 120 H 18 94 01/23/19 14:31 120 H 11 L 96 01/23/19 14:30 121 H 17 115/83 95 01/23/19 14:20 121 H 0 L 95 01/23/19 14:10 121 H 16 96 01/23/19 14:01 122 H 15 95 01/23/19 14:00 121 H 14 118/78 95 01/23/19 13:50 119 H 19 96 01/23/19 13:40 119 H 24 96 01/23/19 13:31 119 H 16 97 01/23/19 13:30 120 H 14 142/86 H 95 01/23/19 13:20 124 H 14 97 01/23/19 13:10 123 H 13 96 01/23/19 13:01 123 H 16 96 01/23/19 13:00 122 H 16 114/79 96 01/23/19 12:50 122 H 15 95 01/23/19 12:40 124 H 15 95 01/23/19 12:31 125 H 12 96 01/23/19 12:30 126 H 15 104/68 96 01/23/19 12:20 125 H 15 95 01/23/19 12:10 127 H 17 94 01/23/19 12:06 93 01/23/19 12:01 127 H 16 100/67 94 01/23/19 12:00 126 H 18 73/63 L 93 01/23/19 11:50 127 H 17 94 01/23/19 11:40 128 H 12 94 01/23/19 11:30 128 H 16 92 01/23/19 11:24 36.5 C 126 H 20 107/69 93 01/23/19 11:20 127 H 18 93 01/23/19 11:19 126 H 13 107/64 95
--- NOTE | 2019-01-23 18:58 | Emergency Department Note ---
Entered by Melanie Kent acting as a scribe for History of Present Illness General Chief complaint: Syncope (Near Syncope) Stated complaint: syncope / [place]roft Time Seen by Provider: 01/23/19 11:59 Source: patient and family Limitations: other (dementia) History of Present Illness Onset (ago): minute(s) (prior to arrival) Location: head Pain Consistency: + other (episode) Quality: + other (syncope) Associated symptoms: no chest pain, no nausea/vomiting and no shortness of breath The patient is an 88 year old female who presents to the ED with complaints of an episode of syncope occurring prior to arrival. Per the patients family at bedside, the patient is coming from a [facility]. They state that this morning she had an episode of syncope on the toilet. They report that it occurred when she stood up of the toilet. They state that the nursing staff there was concerned and sent her to the ED. They note that the patient is demented. The patient states that she doesnt remember any of this and is unsure where she is. The patient denies chest pain, shortness of breath, nausea, and vomiting. Home Medications Home Medications Medication Instructions Recorded Confirmed Type acetaminophen 650 mg PO Q4 PRN 04/16/18 01/23/19 History aspirin [Aspirin Childrens] 81 mg PO DAILY 04/16/18 01/23/19 History cholecalciferol (vitamin D3) 1,000 unit PO DAILY 04/16/18 01/23/19 History [Vitamin D3] donepezil 10 mg PO DAILY 04/16/18 01/23/19 History ezetimibe 10 mg PO DAILY 04/16/18 01/23/19 History isosorbide mononitrate 30 mg PO DAILY 04/16/18 01/23/19 History levothyroxine 50 mcg PO DAILY 04/16/18 01/23/19 History lorazepam 0.5 mg PO DAILY 04/16/18 01/23/19 History metoprolol succinate 12.5 mg PO DAILY 04/16/18 01/23/19 History omeprazole 20 mg PO DAILY 04/16/18 01/23/19 History pravastatin 40 mg PO DAILY 04/16/18 01/23/19 History venlafaxine 150 mg PO DAILY 04/16/18 01/23/19 History food supplemt, lactose-reduced 180 ea PO BID 01/23/19 01/23/19 History [Ensure] Allergies Allergy/AdvReac Type Severity Reaction Status Date / Time Bactrim Allergy Mild ukn Unverified 08/20/17 11:36 codeine Allergy Mild Unknown Verified 01/23/19 13:41 egg Allergy Mild ` Verified 01/23/19 13:41 morphine Allergy Mild ukn Verified 01/23/19 13:41 sulfamethoxazole Allergy Mild ukn Unverified 01/23/19 13:41 trimethoprim Allergy Mild ukn Unverified 01/23/19 13:41 EGG PRODUCTS Allergy Mild ukn Uncoded 01/23/19 13:41 FLU VACCINATION Allergy Unknown ukn Uncoded 01/23/19 13:41 Past Med/Surg History Family History Other Coronary heart disease Social History Preferred Language: Honduran Communication Ability: Effective Beliefs That Will Affect Care: None marital status: / Current Living Situation: Group Home Current Living Situation Comment: [facility] [place] current occupational status: retired Other Information That Helps Us Care for You: No Feels Safe at Home: Yes Safety Concerns: Feels Safe At This Time Smoking Status: Never smoker Hx Alcohol Use: No Hx Substance Use: No Review of Systems HPI and ROS are limited secondary to dementia. Physical Exam Vital Signs Vital Signs - 24 hr 01/23/19 11:19 01/23/19 11:20 01/23/19 11:24 Temperature 36.5 C Temperature Source Oral Sepsis Recent Fever Within 48 Hours No Sepsis Action Taken by Nursing No Action Required Pulse Rate 126 H 127 H 126 H Pulse Rate from SpO2 Sensor 127 H 127 H Respiratory Rate 13 18 20 Respiratory Effort / Characteristics Non-Labored Respiratory Depth Normal Blood Pressure 107/64 107/69 Blood Pressure Mean 78 81 Pulse Oximetry 95 93 93 Oxygen Delivery Method Room Air 01/23/19 11:30 01/23/19 11:40 01/23/19 11:50 Temperature Temperature Source Sepsis Recent Fever Within 48 Hours Sepsis Action Taken by Nursing Pulse Rate 128 H 128 H 127 H Pulse Rate from SpO2 Sensor 128 H 128 H 127 H Respiratory Rate 16 12 17 Respiratory Effort / Characteristics Respiratory Depth Blood Pressure Blood Pressure Mean Pulse Oximetry 92 94 94 Oxygen Delivery Method 01/23/19 12:00 01/23/19 12:01 01/23/19 12:06 Temperature Temperature Source Sepsis Recent Fever Within 48 Hours Sepsis Action Taken by Nursing Pulse Rate 126 H 127 H Pulse Rate from SpO2 Sensor 127 H 127 H Respiratory Rate 18 16 Respiratory Effort / Characteristics Respiratory Depth Blood Pressure 73/63 L 100/67 Blood Pressure Mean 66 78 Pulse Oximetry 93 94 93 Oxygen Delivery Method Room Air 01/23/19 12:10 01/23/19 12:20 01/23/19 12:30 Temperature Temperature Source Sepsis Recent Fever Within 48 Hours Sepsis Action Taken by Nursing Pulse Rate 127 H 125 H 126 H Pulse Rate from SpO2 Sensor 128 H 125 H 125 H Respiratory Rate 17 15 15 Respiratory Effort / Characteristics Respiratory Depth Blood Pressure 104/68 Blood Pressure Mean 80 Pulse Oximetry 94 95 96 Oxygen Delivery Method 01/23/19 12:31 01/23/19 12:40 01/23/19 12:50 Temperature Temperature Source Sepsis Recent Fever Within 48 Hours Sepsis Action Taken by Nursing Pulse Rate 125 H 124 H 122 H Pulse Rate from SpO2 Sensor 125 H 124 H 122 H Respiratory Rate 12 15 15 Respiratory Effort / Characteristics Respiratory Depth Blood Pressure Blood Pressure Mean Pulse Oximetry 96 95 95 Oxygen Delivery Method 01/23/19 13:00 01/23/19 13:01 01/23/19 13:10 Temperature Temperature Source Sepsis Recent Fever Within 48 Hours Sepsis Action Taken by Nursing Pulse Rate 122 H 123 H 123 H Pulse Rate from SpO2 Sensor 121 H 123 H 123 H Respiratory Rate 16 16 13 Respiratory Effort / Characteristics Respiratory Depth Blood Pressure 114/79 Blood Pressure Mean 90 Pulse Oximetry 96 96 96 Oxygen Delivery Method 01/23/19 13:20 01/23/19 13:30 01/23/19 13:31 Temperature Temperature Source Sepsis Recent Fever Within 48 Hours Sepsis Action Taken by Nursing Pulse Rate 124 H 120 H 119 H Pulse Rate from SpO2 Sensor 124 H 119 H 119 H Respiratory Rate 14 14 16 Respiratory Effort / Characteristics Respiratory Depth Blood Pressure 142/86 H Blood Pressure Mean 104 Pulse Oximetry 97 95 97 Oxygen Delivery Method 01/23/19 13:40 01/23/19 13:50 Temperature Temperature Source Sepsis Recent Fever Within 48 Hours Sepsis Action Taken by Nursing Pulse Rate 119 H 119 H Pulse Rate from SpO2 Sensor 120 H 119 H Respiratory Rate 24 19 Respiratory Effort / Characteristics Respiratory Depth Blood Pressure Blood Pressure Mean Pulse Oximetry 96 96 Oxygen Delivery Method GENERAL: Awake, alert, well-appearing, in no acute distress HENT: Normocephalic, atraumatic. Oropharynx unremarkable. EYES: Normal conjunctiva. Sclera non-icteric. NECK: Supple. No nuchal rigidity. FROM. No JVD. RESPIRATORY: Clear to auscultation. CARDIAC: Regular rate, normal rhythm. Extremities warm and well perfused. Pulses equal. ABDOMEN: Soft, non-distended. No tenderness to palpation. No rebound or guarding. No masses. RECTAL: Deferred. MUSCULOSKELETAL: Chest examination reveals no tenderness. The back is symmetrical on inspection without obvious abnormality. There is no CVA tenderness to palpation. No joint edema. LOWER EXTREMITIES: Calves are equal size bilaterally and non-tender. No edema. No discoloration. NEURO: Altered sensorium. No sensory or motor deficits noted. SKIN: No rash or jaundice noted. Course 1200: Past medical records reviewed. The patient was evaluated in room C10. A complete history and physical exam was performed. 1250: I reevaluated the patient and she is resting comfortably. I updated her and her family on her test results and the treatment plan. They verbally agree and understand. 1253: I discussed the patient's case with WALLY Iqbal. She will evaluate the patient for further management. 1255: I discussed the patient's case with Dr. Krishnamurthy Cardiology. He will come see the patient. Consultations Consultation #1: I discussed the patient's case with WALLY Iqbal. She will evaluate the patient for further management. Time: 12:53 Consultation #2: I discussed the patient's case with Dr. Krishnamurthy Cardiology. He will come see the patient. Time: 12:55 Administered Medications Discontinued Medications Aspirin (Aspirin) 324 mg PO NOW STA Stop: 01/23/19 12:59 Last Admin: 01/23/19 13:01 Dose: 324 mg Documented by: [id number] Heparin Sodium/Dextrose () 1 ea IV ONE ONE; Protocol Stop: 01/23/19 12:59 Last Admin: 01/23/19 14:28 Dose: Not Given Documented by: [id number] Heparin Sodium/Dextrose (Heparin Sodium/Dextrose) Confirm Administered Dose 25,000 units IV .STK-MED ONE Stop: 01/23/19 13:34 Last Admin: 01/23/19 14:27 Dose: 1,000 units Documented by: [id number] Cosigned by: [id number] Heparin Sodium/Dextrose () 1 ea IV ONE ONE; Protocol Stop: 01/23/19 14:01 Last Admin: 01/23/19 14:28 Dose: Not Given Documented by: [id number] Sodium Chloride (Nss 1000ml) 1,000 mls @ 999 mls/hr IV .Q1H1M ONE Stop: 01/23/19 13:05 Last Infusion: 01/23/19 16:50 Dose: 0 mls/hr Documented by: [id number] Infusion: 01/23/19 12:35 Dose: 0 mls/hr Documented by: [id number] Admin: 01/23/19 12:09 Dose: 999 mls/hr Documented by: [id number] Heparin Sodium/Dextrose (Heparin Sodium/Dextrose) 25,000 units in 500 mls @ 20 mls/hr IV .Q24H TIFFANY; Protocol Stop: 02/22/19 12:58 Last Titration: 01/23/19 18:07 Dose: 0 units/hr, 0 mls/hr Documented by: [id number] Cosigned by: [id number] Admin: 01/23/19 15:49 Dose: 1,000 units/hr, 20 mls/hr Documented by: [id number] Cosigned by: [id number] Metoprolol Tartrate (Lopressor) 5 mg IV NOW STA Stop: 01/23/19 16:08 Last Admin: 01/23/19 16:23 Dose: 5 mg Documented by: [id number] Medical Decision Making Differential Diagnosis Differential diagnosis: Etiologies such as vasovagal event, infection, anemia, hypoglycemia, hypovolemia, electrolyte abnormalities, dysrhythmias, cardiac ischemia, cardiac tamponade, valvular heart disease, structural heart disease, seizure, vascular stenosis/dissection, pulmonary embolism, intracerebral event, toxicological process, neurologic event, as well as others were entertained. Medical Records Attestation: I reviewed the patient's medical records. Home Medications Current Medication List: was personally reviewed by me Laboratory Data Attestation: I reviewed the patient's lab results. Result diagrams: 01/23/19 11:56 01/23/19 11:56 Lab Results 01/23/19 01/23/19 01/23/19 Range/Units 11:53 11:56 11:56 WBC 9.80 (4.8-10.8) K/uL RBC 4.34 (4.2-5.4) M/uL Hgb 13.6 (12.0-16.0) g/dL POC Hgb (12.0-16.0) g/dl Hct 42.2 (37-47) % POC Hct (37-47) % MCV 97.2 (80-100) fL MCH 31.3 (25-34) pg MCHC 32.2 (32-36) g/dL RDW Std Deviation 47.9 H (36.4-46.3) fL RDW Coeff of Juan 13.5 (11.5-14.5) % Plt Count 253 (130-400) K/uL MPV 9.6 (7.4-10.4) fL Immature Gran % (Auto) 0.3 % Neut % (Auto) 78.6 % Lymph % (Auto) 12.3 % Yates % (Auto) 6.5 % Eos % (Auto) 2.1 % Baso % (Auto) 0.2 % Immature Gran # (Auto) 0.03 H (0.00-0.02) K/uL Neut # (Auto) 7.69 H (1.4-6.5) K/uL Lymph # (Auto) 1.21 (1.2-3.4) K/uL Yates # (Auto) 0.64 H (0.11-0.59) K/uL Eos # (Auto) 0.21 (0-0.5) K/uL Baso # (Auto) 0.02 (0-0.2) K/uL PT 10.9 (9.0-12.0) Seconds INR 1.1 (0.9-1.1) APTT 21.6 (21.0-31.0) Seconds PTT Ratio 0.8 POC Sodium (135-144) mEq/L Sodium 143 (136-145) mmol/L POC Potassium (3.3-5.0) mEq/L Potassium 5.0 (3.5-5.1) mmol/L POC Chloride (101-112) mEq/L Chloride 111 H (98-107) mmol/L Carbon Dioxide 30 (21-32) mmol/L POC Total CO2 (24-31) mEq/l Anion Gap 2.0 L (3-11) POC Anion Gap (16-25) mmol/L POC BUN (7-18) mg/dl BUN 24 H (7-18) mg/dl Creatinine 1.30 H (0.6-1.2) mg/dl POC Creatinine (0.6-1.3) mg/dl Est Cr Clr Drug Dosing 25.3 ml/min Est GFR ( Amer) 42.1 Est GFR (Non-Af Amer) 36.3 BUN/Creatinine Ratio 18.1 (10-20) Glucose 115 H (70-99) mg/dl POC Glucose (other) (70-99) mg/dl Calcium 9.0 (8.5-10.1) mg/dl POC Ioniz Calcium Kenji (1.12-1.32) mmol/l Magnesium 2.4 (1.8-2.4) mg/dl Total Bilirubin 0.4 (0.2-1) mg/dl AST 26 (15-37) U/L ALT 24 (12-78) U/L Alkaline Phosphatase 78 (45-117) U/L Total Creatine Kinase 108 (26-192) U/L CK-MB (CK-2) 13.3 H (0.5-3.6) ng/ml CK/CKMB % Calc 12.3 H (0-3.0) Troponin I 1.550 H* (0-0.045) ng/ml Total Protein 6.7 (6.4-8.2) gm/dl Albumin 3.2 L (3.4-5.0) gm/dl Globulin 3.5 (2.5-4.0) gm/dl Albumin/Globulin Ratio 0.9 (0.9-2) TSH 1.930 (0.300-4.500) uIu/ml 01/23/19 Range/Units 12:00 WBC (4.8-10.8) K/uL RBC (4.2-5.4) M/uL Hgb (12.0-16.0) g/dL POC Hgb 13.9 (12.0-16.0) g/dl Hct (37-47) % POC Hct 41 (37-47) % MCV (80-100) fL MCH (25-34) pg MCHC (32-36) g/dL RDW Std Deviation (36.4-46.3) fL RDW Coeff of Juan (11.5-14.5) % Plt Count (130-400) K/uL MPV (7.4-10.4) fL Immature Gran % (Auto) % Neut % (Auto) % Lymph % (Auto) % Yates % (Auto) % Eos % (Auto) % Baso % (Auto) % Immature Gran # (Auto) (0.00-0.02) K/uL Neut # (Auto) (1.4-6.5) K/uL Lymph # (Auto) (1.2-3.4) K/uL Yates # (Auto) (0.11-0.59) K/uL Eos # (Auto) (0-0.5) K/uL Baso # (Auto) (0-0.2) K/uL PT (9.0-12.0) Seconds INR (0.9-1.1) APTT (21.0-31.0) Seconds PTT Ratio POC Sodium 142 (135-144) mEq/L Sodium (136-145) mmol/L POC Potassium 4.9 (3.3-5.0) mEq/L Potassium (3.5-5.1) mmol/L POC Chloride 106 (101-112) mEq/L Chloride (98-107) mmol/L Carbon Dioxide (21-32) mmol/L POC Total CO2 26 (24-31) mEq/l Anion Gap (3-11) POC Anion Gap 16.0 (16-25) mmol/L POC BUN 25 H (7-18) mg/dl BUN (7-18) mg/dl Creatinine (0.6-1.2) mg/dl POC Creatinine 1.4 H (0.6-1.3) mg/dl Est Cr Clr Drug Dosing ml/min Est GFR ( Amer) Est GFR (Non-Af Amer) BUN/Creatinine Ratio (10-20) Glucose (70-99) mg/dl POC Glucose (other) 123 H (70-99) mg/dl Calcium (8.5-10.1) mg/dl POC Ioniz Calcium Kenji 1.16 (1.12-1.32) mmol/l Magnesium (1.8-2.4) mg/dl Total Bilirubin (0.2-1) mg/dl AST (15-37) U/L ALT (12-78) U/L Alkaline Phosphatase (45-117) U/L Total Creatine Kinase (26-192) U/L CK-MB (CK-2) (0.5-3.6) ng/ml CK/CKMB % Calc (0-3.0) Troponin I (0-0.045) ng/ml Total Protein (6.4-8.2) gm/dl Albumin (3.4-5.0) gm/dl Globulin (2.5-4.0) gm/dl Albumin/Globulin Ratio (0.9-2) TSH (0.300-4.500) uIu/ml Imaging Data Radiologist's Impression: Radiology results as stated below per my review and the radiologist's interpretation: SINGLE VIEW CHEST CLINICAL HISTORY: Weakness. FINDINGS: An AP, portable, upright chest radiograph is compared to study dated 04/16/2018. The examination is degraded by portable technique and patient rotation. The heart is enlarged and there is atherosclerotic calcification of the thoracic aorta. The pulmonary vasculature is noncongested. Chronic interstitial thickening is similar to previous. A calcified granuloma is noted at the left apex. The lungs and pleural spaces are otherwise clear. No pneumothorax is seen. The skeletal structures are osteopenic. The bony thorax is grossly intact. IMPRESSION: Cardiomegaly with no active disease in the chest. Electronically signed by: Navarro Valerio M.D. 01/23/2019 1:02 PM ECG Data Attestation: I personally reviewed and interpreted this ECG as follows: Indication: syncope Rate (beats per minute): 127 Rhythm: sinus tachycardia Findings: + 1st degree AV block and + LBBB Comparison ECG Date: from (08/20/2017) Change: no significant change Blood Pressure Blood Pressure Findings: Normal blood pressure Blood Pressure Disposition: did not require urgent referral MDM Narrative This is an 88-year-old female who presents emergency department with no complaints. The patient had a syncopal [facility] at her [facility]. Her EKG is showing a left bundle branch block which is unchanged from previous. Her troponin was found to be grossly elevated along with her MB fraction. Because of this she was placed on a heparin drip. I did discuss the case with both cardiology as well as the hospitalist service who agreed to admit the patient. Patient and family were in agreement with the treatment plan. Impression & Plan Non-ST elevation [place] (NSTEMI) Critical Care Time I have personally spent greater than 30 minutes of critical care time in the direct management of this patient. This includes bedside care, interpretation of diagnostic studies, and testing, discussion with consultants, patient, and family members, and other required patient management activities. This 30 minutes is in excess of all separately billable procedures. Discharge Plan Visit Data *Final* Discharge Date/Time: 01/23/19 14:49 Chief Complaint: Syncope (Near Syncope) Stated Complaint: syncope / elroft ED Provider: Genaro Raya Discharge Problem: Non-ST elevation [place] (NSTEMI) Patient Disposition: Admitted As Inpatient Discharge Instructions Interventions: ED Discharge Assessment Last Done: 01/23/19 14:49 The scribe's documentation has been prepared under my direction and personally reviewed by me in its entirety. I confirm that the note above accurately reflects all work, treatment, procedures, and medical decision making performed by me.
[2019-01-23] MEDS ORDERED: FOOD SUPPLEMT LACTOSE REDUCED PO SCH (21:00)
[2019-01-24] MEDS: LEVOTHYROXINE SODIUM 50 MCG TABLET PO SCH (06:00)
[2019-01-24] MEDS ORDERED: LORazepam 0.5 MG/1 ML VIAL IV PRN (08:46)
--- NOTE | 2019-01-24 08:58 | Palliative Care Consultation ---
Date of Consultation January 24, 2019 Assessment & Plan (1) Palliative care encounter: This is an 88-year-old female with a PMH of systolic CHF, valvular dysfunction, chronic LBB, CAD, Alzheimer's disease, CKD 3 and mood disorder who presents from [facility] personal care after a witnessed syncopal event this morning. Patient is an unreliable historian due to her advanced dementia and the patients son, Emmanuel has been the main historian. Upon arrival to the ED, the patient was diagnosed with an NSTEMI and an ECHO indicated her EF has decreased from 35% in August 2018 to 20%. The patients QTC is now greater than 500. Cardiology has evaluated the patient and upon discussion of pacemaker insertion, the family declined and would like to manage her symptoms conservatively and focus on comfort. Palliative care was consulted to discuss goals of care. -I met with patient in her room and the 1:1 who was with her today as she was agitated earlier. -Due to prolonged QTC, Clonazepam 1 mg po BID and also Ativan 1 mg SL Q6 hours PRN. -Patient is oriented to person only; however, did say she lives in [place]. -Per 1:1 patient did ambulate to the bathroom with a walker and was a 1-person assist. -Pt mostly with nonsensical conversation today. Patient was able to identify her son's name from a multiple choice list. -FAST stage all of 6 indicating moderately severe dementia. Pt would qualify for hospice with CHF or dementia diagnosis. -I called her son Emmanuel ([phone]) and spoke with him and his , Monica regarding Hospice and goals. -Patient was a resident of [facility]; however, due to financial and personal reasons are looking at either transitioning to [facility] or [facility] and they were very open to Hospice services at either location once we discussed in more detail. -Regarding if she would be skillable her for admission at either location, I do not feel in her condition this to be in allignment of family goals. PT/OT would need to be ordered and family has indicated they are not interested in this. -I did confirm the patient to ne a DNR and we did complete a POLST form over the phone with the following indications: DNR/DNI, Comfort measures only, no artificial nutrition/hydration and a trial of antibiotics. Son will sign POLST when he arrives. -Patient family would like to avoid additional hospitalizations and do not want to escalate her care. -Family has lots of logistical and financial questions for which they will come in to meet case management to discuss this afternoon. -PPS: 30% -We will continue to follow this patient as needed through her hospital stay. Please don't hesitate to contact us with any additional concerns. (2) Metabolic encephalopathy: (3) Chronic systolic (congestive) heart failure: (4) Non-ST elevation NM (NSTEMI): (5) Dementia: Dementia behavioral disturbance: with behavioral disturbance Dementia type: unspecified type Qualified Code(s): F03.91 - Unspecified dementia with behavioral disturbance Supervising Physician Co-Signing Physician Notes Chart reviewed, collaborated with TERESA Dumont, patient seen and examined-patient's son and daughter at bedside. PE: Patient awake and alert, no acute distress HEENT: EOMI, hearing within normal limits Respirations: Unlabored, lungs clear on exam CV: Regular rate, no edema Abdomen: Soft ,nontender Neuro: Alert and oriented x1 Agree with above note, assessment and plan as per TERESA Dumont-plan is for transfer to either [facility] or [facility] when bed is available under hospice care. POLST form completed History of Present Illness Reason for Consultation: Goals of care Requesting Physician: Dr. Torres Attending Physician: Roseline Torres MD History of Present Illness This is an 88-year-old female with a PMH of systolic CHF, valvular dysfunction, chronic LBB, CAD, Alzheimer's disease, CKD 3 and mood disorder who presents from [facility] after a witnessed syncopal event this morning. Patient is an unreliable historian due to her advanced dementia and the patients son, Emmanuel has been the main historian. Upon arrival to the ED, the patient was diagnosed with an NSTEMI and an ECHO indicated her EF has decreased from 35% in August 2018 to 20%. The patients QTC is now greater than 500. Cardiology has evaluated the patient and upon discussion of pacemaker insertion, the family declined and would like to manage her symptoms conservatively and focus on comfort. Palliative care was consulted to discuss goals of care. Please see A/P for additional details. Thank you kindly for involving palliative care with this family. We will follow as needed. Allergies Allergy/AdvReac Type Severity Reaction Status Date / Time Bactrim Allergy Mild ukn Unverified 08/20/17 11:36 codeine Allergy Mild Unknown Verified 01/23/19 13:41 egg Allergy Mild ` Verified 01/23/19 13:41 morphine Allergy Mild ukn Verified 01/23/19 13:41 sulfamethoxazole Allergy Mild ukn Unverified 01/23/19 13:41 trimethoprim Allergy Mild ukn Unverified 01/23/19 13:41 EGG PRODUCTS Allergy Mild ukn Uncoded 01/23/19 13:41 FLU VACCINATION Allergy Unknown ukn Uncoded 01/23/19 13:41 Home Medications Home Medications Medication Instructions Recorded Confirmed Type acetaminophen 650 mg PO Q4 PRN 04/16/18 01/23/19 History aspirin [Aspirin Childrens] 81 mg PO DAILY 04/16/18 01/23/19 History cholecalciferol (vitamin D3) 1,000 unit PO DAILY 04/16/18 01/23/19 History [Vitamin D3] donepezil 10 mg PO DAILY 04/16/18 01/23/19 History ezetimibe 10 mg PO DAILY 04/16/18 01/23/19 History isosorbide mononitrate 30 mg PO DAILY 04/16/18 01/23/19 History levothyroxine 50 mcg PO DAILY 04/16/18 01/23/19 History lorazepam 0.5 mg PO DAILY 04/16/18 01/23/19 History metoprolol succinate 12.5 mg PO DAILY 04/16/18 01/23/19 History omeprazole 20 mg PO DAILY 04/16/18 01/23/19 History pravastatin 40 mg PO DAILY 04/16/18 01/23/19 History venlafaxine 150 mg PO DAILY 04/16/18 01/23/19 History food supplemt, lactose-reduced 180 ea PO BID 01/23/19 01/23/19 History [Ensure] Patient History Medical History CAD (coronary artery disease) (Chronic) CKD (chronic kidney disease), stage III (Chronic) Mood disorder (Chronic) Aortic stenosis (Chronic) Left bundle branch block (Chronic) Chronic systolic (congestive) heart failure (Chronic) Dementia (Chronic) Carotid artery stenosis (Chronic 05/08/11) Carotid bruit (Chronic 05/08/11) Fall (Acute) Mitral valve regurgitation (Chronic 05/08/11) NSTEMI (non-ST elevated myocardial infarction) (Acute) Syncope (Acute) No significant past surgical history (Chronic) Family History Other Coronary heart disease Social History Preferred Language: Maori Communication Ability: Unable Beliefs That Will Affect Care: None marital status: / Current Living Situation: [facility] Current Living Situation Comment: [facility] current occupational status: retired Other Information That Helps Us Care for You: No Feels Safe at Home: Yes Safety Concerns: Feels Safe At This Time Smoking Status: Never smoker Hx Alcohol Use: No Hx Substance Use: No Review of Systems Review of Systems: Unobtainable due to cognitive status Physical Exam Constitutional: well developed, + altered mental status (alzheimers dementia) and + frail appearing Eyes: PERRL, conjunctivae normal, anicteric sclerae ENMT: external ear and nose normal, oropharynx normal Neck: trachea midline, no thyromegaly Respiratory: normal respiratory effort, lungs clear to auscultation Cardiovascular: Heart Sounds: normal S1, normal S2 and + murmur Extremities: normal capillary refill and + edema (trace B/L LE) Musculoskeletal: B/L UE strength +/5 LE strength 3+/5 Pt is still ambulating with a walker 1 assist Skin: no rashes, warm and dry + ecchymosis Psychiatric: Orientation: alert and oriented to person Affect: euthymic affect Insight: + impaired insight Judgement: + impaired judgement Lymphatic: no cervical or axillary lymphadenopathy Time Spent Midlevel Total time spent 70 minutes with > 50% of that time spent assessing the patient, discussing goals of care and POLST with family.
[2019-01-24] MEDS ORDERED: PRAVASTATIN SOD 40 MG TAB PO SCH (09:00)
[2019-01-24] MEDS ORDERED: METOPROLOL SUCC 25MG EXT REL TAB PO SCH (09:00)
[2019-01-24] MEDS ORDERED: PANTOprazole 40 MG TAB PO SCH (09:00)
[2019-01-24] MEDS ORDERED: DONEPEZIL HCL 10 MG TAB PO SCH (09:00)
[2019-01-24] MEDS ORDERED: LORazepam 0.5 MG TAB PO SCH (09:00)
[2019-01-24] MEDS ORDERED: EZETIMIBE 10 MG TABLET PO SCH (09:00)
[2019-01-24] MEDS ORDERED: CHOLECALCIFEROL 1,000 UNITS TAB PO SCH (09:00)
[2019-01-24] MEDS: VENLAFAXINE HCL XR 150 MG CAPXR PO SCH (09:10)
[2019-01-24] MEDS: ISOSORBIDE MONO EXTENDED REL 30 MG TABCR PO SCH (09:11)
[2019-01-24] MEDS: ASPIRIN 81 MG ECTAB PO SCH (09:12)
--- NOTE | 2019-01-24 10:09 | Hospitalist Progress Note ---
Date of Service January 24, 2019 Assessment & Plan (1) Non-ST elevation NC (NSTEMI): Presented with syncope, noted to have ST elevated NC with elevated troponin New left bundle branch block noted in EKG Resting echo 01/23/2019 shows new wall motion abnormality with worsening of ejection fraction 20% compared to 30 to 35% noted in echo 08/2018 Appreciate input from cardiology Given patient's advanced age and dementia, symptoms, conservative approach was recommended Patient was started with IV heparin Became very combative agitated, pulling out IV site Was tachycardic during agitation heart rate went up to [id number] Developed 4-second sinus pause, Goal of care discussed with family After discussion the Son -power of section leader and machine setter with cardiology, (Son does not want pacemaker, no invasive procedure,) wants patient to be comfortable aware of the poor prognosis Patient was transitioned to comfort care/ hospice, Palliative care team consulted (2) Metabolic encephalopathy: Baseline dementia, Developed worsening of mental status, severe agitation, combativeness, delirium- possible secondary to acute NC, severe ischemic cardiomyopathy, acute illness with change of surrounding Unable to utilize Haldol,-antipsychotics: Seroquel/Zyprexa-due to prolonged QTC QTC more than 500 on admission Will utilize long-acting Klonopin ordered for 1 mg p.o. twice daily PRN lorazepam/Ativan (short-acting) sublingual every 4 hours as needed for agitation Family understands goal of care, plan to transition to [facility] with hospice care (3) Sinus pause: Possible secondary to acute NC 4-second sinus pause noted yesterday 01/23/2019 while patient was in telemetry/PCU Prognosis remains guarded High risk for bradycardia arrhythmia/ventricular arrhythmia, cardiac arrest Family aware Plan of care discussed with patient son power of section leader and machine setter Emmanuel Isidoro Does not want pacemaker Patient is transitioned to hospice/palliative care QTC prolonged to more than 500 We will avoid medications which can lengthen QTC causing fatal arrhythmias: Do not use Haldol, Seroquel, Zyprexa Avoid Zofran (4) Syncope: Presents with syncopal episode, possible secondary to cardiac arrhyt hmia/sinus pause in the setting of acute NC Patient is at present transition to comfort care hospice-due to overall poor prognosis (5) CAD (coronary artery disease): Underlying coronary artery disease, presented with non-ST elevated NC, with severe ischemic cardiomyopathy: New finding Not a candidate for cardiac intervention/cardiac angiogram/PTCA Risk procedure, acute renal failure on CKD stage III, family does not want any invasive procedures/cardiac intervention, however of poor outcome Transition to hospice, comfort care Continued with aspirin 81 mg daily Obtained with Imdur, no complaint of chest pain, patient continues to be hypertensive (6) CKD (chronic kidney disease), stage III: Acute renal failure on CKD stage III, Patient with creatinine 1.3 elevated from baseline, possible secondary to dehydration, poor p.o. intake IV fluid ordered, secondary to poor ejection fraction, patient does not appear to be clinically dehydrated Avoid contrast studies Overall poor prognosis secondary to severe ischemic cardiomyopathy acute NC Hospice/palliative care appropriate (7) Left bundle branch block: New finding in the setting of acute non-ST elevated NC Noted to have sinus pause/cardiac arrhythmia Prognosis remains guarded (8) Dementia: Baseline advanced dementia Was a resident personal detention/[facility] did had occasional behavioral issue: Combativeness, yelling, pushing throwing things But most instances she was calm and cooperative, Became extremely agitated combative since admission, possible acute delirium/metabolic encephalopathy in the setting of acute NC, acute illness Patient's continue to provide supportive care, 1-1 observation secondary to fall risk, On hospice comfort care PRN benzodiazepine utilized, Unable to use anti-psychiatric meds secondary to cardiac arrhythmia prolonged QTC CODE STATUS: DNR/DNI Disposition: Family expecting patient to transition to [facility] with hospice Palliative care Social service consulted Subjective Patient seen in the unit 4 east Room 414 Awake and alert appears to be calm and cooperative remains very confused Patient did not sleep last night, was very agitated combative, Became more calm at this morning, finished breakfast without any problem No sign of discomfort, when asking about chest pain "patient says I do not know" Requiring 1-1 nursing-this patient continues to try to climb out of bed, Physical Exam Constitutional: + altered mental status (Confused) and + behavioral limitations (Confusion/baseline advanced dementia); no acute distress Elderly female awake and alert, very confused, Eyes: + anicteric sclerae ENMT: Ears: + hearing impairment Neck: normal visual inspection Respiratory: normal respiratory effort; no respiratory distress Cardiovascular: Rate/Rhythm: regular rate and regular rhythm Gastrointestinal (Abdomen): normal bowel sounds, soft, nontender, no hepatosplenomegaly Musculoskeletal: Extremities: extremities normal to inspection Skin: no rashes, warm and dry Neurologic: No neurological deficit, no weakness or paresthesia, speech fluent, patient is confused, disoriented Psychiatric: Affect: + flat affect Confused, with episode of agitation combative Calm and cooperative at present (1) Syncope Syncope type: unspecified Qualified Code(s): R55 - Syncope and collapse (2) CAD (coronary artery disease) Coronary Disease-Associated Artery/Lesion type: [place] artery [place] vs. transplanted heart: [place] heart Associated angina: without angina Qualified Code(s): I25.10 - Atherosclerotic heart disease of [place] coronary artery without angina pectoris (3) Dementia Dementia type: unspecified type Dementia behavioral disturbance: with behavioral disturbance Qualified Code(s): F03.91 - Unspecified dementia with behavioral disturbance
[2019-01-24] MEDS: LORazepam 1 MG TAB SL PRN (19:45)
[2019-01-24] MEDS: clonazePAM 1 MG TAB PO SCH (20:23)
[2019-01-25] MEDS: LEVOTHYROXINE SODIUM 50 MCG TABLET PO SCH (06:37)
[2019-01-25] MEDS: ISOSORBIDE MONO EXTENDED REL 30 MG TABCR PO SCH ×2 (09:24→13:02)
[2019-01-25] MEDS: clonazePAM 1 MG TAB PO SCH ×3 (09:24→20:40)
[2019-01-25] MEDS: VENLAFAXINE HCL XR 150 MG CAPXR PO SCH ×2 (09:25→13:01)
[2019-01-25] MEDS: ASPIRIN 81 MG ECTAB PO SCH ×2 (09:25→13:01)
--- NOTE | 2019-01-25 15:11 | Hospitalist Progress Note ---
Date of Service January 25, 2019 Assessment & Plan (1) Palliative care encounter: Patient remains in comfort care hospice, progress safe decline in cognitive and functional status noted Lethargic to have any p.o. intake, All p.o. meds: Aspirin statin discontinued Due to PRN sublingual/IV Ativan for comfort care of the Input from palliative care Plan to transition to hospice care At [facility] possible on Sunday (2) Non-ST elevation AL (NSTEMI): Very poor prognosis, on comfort care hospice Presented with syncope, noted to have ST elevated AL with elevated troponin New left bundle branch block noted in EKG Resting echo 01/23/2019 shows new wall motion abnormality with worsening of ejection fraction 20% compared to 30 to 35% noted in echo 08/2018 Appreciate input from cardiology Given patient's advanced age and dementia, symptoms, conservative approach was recommended Patient was started with IV heparin Became very combative agitated, pulling out IV site Was tachycardic during agitation heart rate went up to [id number] Developed 4-second sinus pause, Goal of care discussed with family After discussion the Son -power of trust and estates attorney with cardiology, (Son does not want pacemaker, no invasive procedure,) wants patient to be comfortable aware of the poor prognosis Patient was transitioned to comfort care/ hospice, Palliative care team consulted (3) Metabolic encephalopathy: Stuporous, sedated today Continue comfort care getting as needed Ativan for agitation/anxiety Baseline dementia, Developed worsening of mental status, severe agitation, combativeness, delirium-possible secondary to acute AL, severe ischemic cardiomyopathy, acute illness with change of surrounding Unable to utilize Haldol,-antipsychotics: Seroquel/Zyprexa-due to prolonged QTC QTC more than 500 on admission Will utilize long-acting Klonopin ordered for 1 mg p.o. twice daily PRN lorazepam/Ativan (short-acting) sublingual every 4 hours as needed for agitation Family understands goal of care, plan to transition to [facility] with hospice care (4) Sinus pause: Possible secondary to acute AL 4-second sinus pause noted yesterday 01/23/2019 while patient was in telemetry/PCU Prognosis remains guarded High risk for bradycardia arrhythmia/ventricular arrhythmia, cardiac arrest Family aware Plan of care discussed with patient son power of trust and estates attorney Emmanuel Chaudhry Does not want pacemaker Patient is transitioned to hospice/palliative care QTC prolonged to more than 500 We will avoid medications which can lengthen QTC causing fatal arrhythmias: Do not use Haldol, Seroquel, Zyprexa Avoid Zofran (5) Syncope: Presents with syncopal episode, possible secondary to cardiac arrhythmia/sinus pause in the setting of acute AL Patient is at present transition to comfort care hospice-due to overall poor prognosis (6) CAD (coronary artery disease): Underlying coronary artery disease, presented with non-ST elevated AL, with severe ischemic cardiomyopathy: New finding Not a candidate for cardiac intervention/cardiac angiogram/PTCA Risk procedure, acute renal failure on CKD stage III, family does not want any invasive procedures/cardiac intervention, however of poor outcome Transition to hospice, comfort care We will DC all oral meds, as patient unable to take secondary to lethargy (7) CKD (chronic kidney disease), stage III: Acute renal failure on CKD stage III, Patient with creatinine 1.3 elevated from baseline, possible secondary to dehydration, poor p.o. intake IV fluid ordered, secondary to poor ejection fraction, patient does not appear to be clinically dehydrated Avoid contrast studies Overall poor prognosis secondary to severe ischemic cardiomyopathy acute AL Hospice/palliative care appropriate (8) Left bundle branch block: New finding in the setting of acute non-ST elevated AL Noted to have sinus pause/cardiac arrhythmia Prognosis remains guarded (9) Dementia: Baseline advanced dementia [facility] did had occasional behavioral issue: Combativeness, yelling, pushing throwing things But most instances she was calm and cooperative, Became extremely agitated combative since admission, possible acute delirium/metabolic encephalopathy in the setting of acute AL, acute illness Patient's continue to provide supportive care, 1-1 observation secondary to fall risk, On hospice comfort care PRN benzodiazepine utilized, Unable to use anti-psychiatric meds secondary to cardiac arrhythmia prolonged QTC CODE STATUS: DNR/DNI Disposition: Plan to transition care to [facility] on Sunday with hospice Palliative care following appreciate input Social service consulted Subjective Remains in comfort care/hospice, Lethargic, today As per nursing patient could not take p.o. meds in the morning-2 stuporous Did not had breakfast Given IV Ativan for agitation Will order to DC p.o. meds Continue as needed sublingual/IV Ativan for comfort care/anxiety agitation Physical Exam Constitutional: + altered mental status (Stuporous/sedated) and + behavioral limitations (Confusion/baseline advanced dementia); no acute distress Eyes: + anicteric sclerae ENMT: Ears: + hearing impairment Neck: normal visual inspection Respiratory: normal respiratory effort; no respiratory distress Cardiovascular: Rate/Rhythm: regular rate and regular rhythm Gastrointestinal (Abdomen): normal bowel sounds, soft, nontender, no hepatosplenomegaly Musculoskeletal: Extremities: extremities normal to inspection Skin: no rashes, warm and dry Neurologic: + confused and + obtunded Psychiatric: Obtunded today Results & Data Vital Signs (Past 12 Hours) Vital Signs Pulse Resp BP 01/25/19 09:32 59 L 16 182/79 H (1) CAD (coronary artery disease) Associated angina: without angina Coronary Disease-Associated Artery/Lesion type: [place] artery [place] vs. transplanted heart: [place] heart Qualified Code(s): I25.10 - Atherosclerotic heart disease of [place] coronary artery without angina pectoris (2) Dementia Dementia behavioral disturbance: with behavioral disturbance Dementia type: unspecified type Qualified Code(s): F03.91 - Unspecified dementia with behavioral disturbance (3) Syncope Syncope type: unspecified Qualified Code(s): R55 - Syncope and collapse
[2019-01-25] MEDS ORDERED: ATROPINE SULFATE 1% OP SOLN 5 ML BTL SL PRN (18:12)
[2019-01-25] MEDS ORDERED: MoRPHine SULFATE 10 MG/0.5 ML UDP PO PRN (18:12)
[2019-01-26] MEDS: clonazePAM 1 MG TAB PO SCH ×2 (08:32→20:37)
--- NOTE | 2019-01-26 17:00 | Hospitalist Progress Note ---
Date of Service January 26, 2019 Assessment & Plan (1) Palliative care encounter: Patient remains in comfort care hospice, progress safe decline in cognitive and functional status noted Lethargic to have any p.o. intake, All p.o. meds: Aspirin statin discontinued Due to PRN sublingual/IV Ativan for comfort care of the Input from palliative care Plan to transition to hospice care At [facility] possible on Sunday (2) Non-ST elevation KS (NSTEMI): Very poor prognosis, on comfort care hospice Presented with syncope, noted to have ST elevated KS with elevated troponin New left bundle branch block noted in EKG Resting echo 01/23/2019 shows new wall motion abnormality with worsening of ejection fraction 20% compared to 30 to 35% noted in echo 08/2018 Appreciate input from cardiology Given patient's advanced age and dementia, symptoms, conservative approach was recommended Patient was started with IV heparin Became very combative agitated, pulling out IV site Was tachycardic during agitation heart rate went up to [id number] Developed 4-second sinus pause, Goal of care discussed with family After discussion the Son -power of claims attorney with cardiology, (Son does not want pacemaker, no invasive procedure,) wants patient to be comfortable aware of the poor prognosis Patient was transitioned to comfort care/ hospice, Palliative care team consulted (3) Metabolic encephalopathy: Stuporous, sedated today Continue comfort care getting as needed Ativan for agitation/anxiety Baseline dementia, Developed worsening of mental status, severe agitation, combativeness, delirium-possible secondary to acute KS, severe ischemic cardiomyopathy, acute illness with change of surrounding Unable to utilize Haldol,-antipsychotics: Seroquel/Zyprexa-due to prolonged QTC QTC more than 500 on admission Will utilize long-acting Klonopin ordered for 1 mg p.o. twice daily PRN lorazepam/Ativan (short-acting) sublingual every 4 hours as needed for agitation Family understands goal of care, plan to transition to [facility] with hospice care (4) Sinus pause: Possible secondary to acute KS 4-second sinus pause noted yesterday 01/23/2019 while patient was in telemetry/PCU Prognosis remains guarded High risk for bradycardia arrhythmia/ventricular arrhythmia, cardiac arrest Family aware Plan of care discussed with patient son power of claims attorney Emmanuel Chaudhry Does not want pacemaker Patient is transitioned to hospice/palliative care QTC prolonged to more than 500 We will avoid medications which can lengthen QTC causing fatal arrhythmias: Do not use Haldol, Seroquel, Zyprexa Avoid Zofran (5) Syncope: Presents with syncopal episode, possible secondary to cardiac arrhythmia/sinus pause in the setting of acute KS Patient is at present transition to comfort care hospice-due to overall poor prognosis (6) CAD (coronary artery disease): Underlying coronary artery disease, presented with non-ST elevated KS, with severe ischemic cardiomyopathy: New finding Not a candidate for cardiac intervention/cardiac angiogram/PTCA Risk procedure, acute renal failure on CKD stage III, family does not want any invasive procedures/cardiac intervention, however of poor outcome Transition to hospice, comfort care We will DC all oral meds, as patient unable to take secondary to lethargy (7) CKD (chronic kidney disease), stage III: Acute renal failure on CKD stage III, Patient with creatinine 1.3 elevated from baseline, possible secondary to dehydration, poor p.o. intake IV fluid ordered, secondary to poor ejection fraction, patient does not appear to be clinically dehydrated Avoid contrast studies Overall poor prognosis secondary to severe ischemic cardiomyopathy acute KS Hospice/palliative care appropriate (8) Left bundle branch block: New finding in the setting of acute non-ST elevated KS Noted to have sinus pause/cardiac arrhythmia Prognosis remains guarded (9) Dementia: Baseline advanced dementia [facility] did had occasional behavioral issue: Combativeness, yelling, pushing throwing things But most instances she was calm and cooperative, Became extremely agitated combative since admission, possible acute delirium/metabolic encephalopathy in the setting of acute KS, acute illness Patient's continue to provide supportive care, 1-1 observation secondary to fall risk, On hospice comfort care PRN benzodiazepine utilized, Unable to use anti-psychiatric meds secondary to cardiac arrhythmia prolonged QTC CODE STATUS: DNR/DNI Disposition: Plan to transition care to [facility] on Sunday with hospice Palliative care following appreciate input Social service consulted Subjective Remains in comfort care/hospice, Awake and alert today, no agitation noted Physical Exam Physical Exam: Minimum exam secondary to comfort care Constitutional: no acute distress ENMT: Ears: + hearing impairment Respiratory: normal respiratory effort; no respiratory distress Musculoskeletal: Extremities: extremities normal to inspection Skin: no rashes, warm and dry Neurologic: + confused and + obtunded Psychiatric: Affect: + flat affect Results & Data Vital Signs (Past 12 Hours) Vital Signs Temp Pulse Resp BP Pulse Ox 01/26/19 15:20 36.3 C L 62 20 149/72 H 98 (1) CAD (coronary artery disease) Associated angina: without angina Coronary Disease-Associated Artery/Lesion type: [place] artery [place] vs. transplanted heart: [place] heart Qualified Code(s): I25.10 - Atherosclerotic heart disease of [place] coronary artery without angina pectoris (2) Dementia Dementia behavioral disturbance: with behavioral disturbance Dementia type: unspecified type Qualified Code(s): F03.91 - Unspecified dementia with behavioral disturbance (3) Syncope Syncope type: unspecified Qualified Code(s): R55 - Syncope and collapse
[2019-01-27] MEDS: clonazePAM 1 MG TAB PO SCH ×2 (08:09→21:49)
[2019-01-27] MEDS: LORazepam 1 MG TAB SL PRN (13:28)
--- NOTE | 2019-01-27 17:59 | Hospitalist Progress Note ---
Date of Service January 27, 2019 Assessment & Plan (1) Palliative care encounter: Patient remains in comfort care hospice, progress safe decline in cognitive and functional status noted Lethargic to have any p.o. intake, All p.o. meds: Aspirin statin discontinued Ordered PRN sublingual/IV Ativan for comfort care of the Appreciate input from palliative care Plan to transition to hospice care At [facility] No bed available at group home today Possible transfer tomorrow with hospice care (2) Non-ST elevation [place] (NSTEMI): Very poor prognosis, on comfort care hospice Presented with syncope, noted to have ST elevated AL with elevated troponin New left bundle branch block noted in EKG Resting echo 01/23/2019 shows new wall motion abnormality with worsening of ejection fraction 20% compared to 30 to 35% noted in echo 08/2018 Appreciate input from cardiology Given patient's advanced age and dementia, symptoms, conservative approach was recommended Patient was started with IV heparin Became very combative agitated, pulling out IV site Was tachycardic during agitation heart rate went up to [id number] Developed 4-second sinus pause, Goal of care discussed with family After discussion the Son -power of real estate associate attorney with cardiology, (Son does not want pacemaker, no invasive procedure,) wants patient to be comfortable aware of the poor prognosis Patient was transitioned to comfort care/ hospice, Palliative care team following Plan to transfer to group home with hospice care when bed available (3) Metabolic encephalopathy: Remains confused/sedated Continue comfort care getting as needed Ativan for agitation/anxiety Baseline dementia, Developed worsening of mental status, severe agitation, combativeness, delirium- possible secondary to acute AL, severe ischemic cardiomyopathy, acute illness with change of surrounding Unable to utilize Haldol,-antipsychotics: Seroquel/Zyprexa-due to prolonged QTC QTC more than 500 on admission Will utilize long-acting Klonopin ordered for 1 mg p.o. twice daily PRN lorazepam/Ativan (short-acting) sublingual every 4 hours as needed for agitation Family understands goal of care, plan to transition to group home with hospice care (4) Sinus pause: Possible secondary to acute AL 4-second sinus pause noted yesterday 01/23/2019 while patient was in telemetry/PCU Prognosis remains guarded High risk for bradycardia arrhythmia/ventricular arrhythmia, cardiac arrest Family aware Plan of care discussed with patient son power of real estate associate attorney Emmanuel Chaudhry Does not want pacemaker Patient is transitioned to hospice/palliative care QTC prolonged to more than 500 We will avoid medications which can lengthen QTC causing fatal arrhythmias: Do not use Haldol, Seroquel, Zyprexa Avoid Zofran (5) Syncope: Presents with syncopal episode, possible secondary to cardiac arrhythmia/sinus pause in the setting of acute AL Patient is at present transition to comfort care hospice-due to overall poor prognosis (6) CAD (coronary artery disease): Underlying coronary artery disease, presented with non-ST elevated AL, with severe ischemic cardiomyopathy: New finding Not a candidate for cardiac intervention/cardiac angiogram/PTCA Risk procedure, acute renal failure on CKD stage III, family does not want any invasive procedures/cardiac intervention, however of poor outcome Transition to hospice, comfort care (7) CKD (chronic kidney disease), stage III: Overall poor prognosis secondary to severe ischemic cardiomyopathy acute AL Hospice/palliative care appropriate (8) Left bundle branch block: (9) Dementia: Baseline advanced dementia On hospice comfort care PRN benzodiazepine utilized, Unable to use anti-psychiatric meds secondary to cardiac arrhythmia prolonged QTC CODE STATUS: DNR/DNI Disposition: Plan to transition care to group home tomorrow with hospice care if bed available Palliative care following appreciate input Social service consulted Subjective Remains obtunded, per nursing was more agitated earlier, symptom improved with PRN Ativan No sign of distress, no cough or respiratory distress noted Physical Exam Physical Exam: Minimum exam for hospice/comfort care Constitutional: no acute distress Respiratory: normal respiratory effort and + respiratory distress Musculoskeletal: Extremities: extremities normal to inspection Neurologic: + confused and + obtunded Psychiatric: Affect: + flat affect (1) CAD (coronary artery disease) Associated angina: without angina Coronary Disease-Associated Artery/Lesion type: [place] artery [place] vs. transplanted heart: [place] heart Qualified Code(s): I25.10 - Atherosclerotic heart disease of [place] coronary artery without angina pectoris (2) Dementia Dementia behavioral disturbance: with behavioral disturbance Dementia type: unspecified type Qualified Code(s): F03.91 - Unspecified dementia with behavioral disturbance (3) Syncope Syncope type: unspecified Qualified Code(s): R55 - Syncope and collapse
[2019-01-28] MEDS: LORazepam 1 MG TAB SL PRN (06:09)
[2019-01-28] MEDS: clonazePAM 1 MG TAB PO SCH (09:08)
--- NOTE | 2019-01-28 11:24 | Hospitalist Progress Note ---
Date of Service January 28, 2019 Assessment & Plan (1) Palliative care encounter: Patient remains in comfort care hospice, progress safe decline in cognitive and functional status noted Lethargic to have any p.o. intake, All p.o. meds: Aspirin statin discontinued Ordered PRN sublingual/IV Ativan for comfort care of the Appreciate input from palliative care Plan to transition to hospice care At [facility] Plan to transfer to long term with hospice care when bed available (2) Non-ST elevation AL (NSTEMI): Very poor prognosis, on comfort care hospice Presented with syncope, noted to have ST elevated AL with elevated troponin New left bundle branch block noted in EKG Resting echo 01/23/2019 shows new wall motion abnormality with worsening of ejection fraction 20% compared to 30 to 35% noted in echo 08/2018 Appreciate input from cardiology Given patient's advanced age and dementia, symptoms, conservative approach was recommended Developed 4-second sinus pause, Goal of care discussed with family After discussion the Son -power of civil attorney with cardiology, (Son does not want pacemaker, no invasive procedure,) wants patient to be comfortable aware of the poor prognosis Patient was transitioned to comfort care/ hospice, Palliative care team following Plan to transfer to long term with hospice care when bed available (3) Metabolic encephalopathy: Remains confused/sedated Continue comfort care getting as needed Ativan for agitation/anxiety Baseline dementia, Developed worsening of mental status, severe agitation, combativeness, delirium- possible secondary to acute AL, severe ischemic cardiomyopathy, acute illness with change of surrounding Unable to utilize Haldol,-antipsychotics: Seroquel/Zyprexa-due to prolonged QTC QTC more than 500 on admission Will utilize long-acting Klonopin ordered for 1 mg p.o. twice daily PRN lorazepam/Ativan (short-acting) sublingual every 4 hours as needed for agitation Family understands goal of care, plan to transition to long term with hospice care (4) Sinus pause: Possible secondary to acute AL 4-second sinus pause noted yesterday 01/23/2019 while patient was in telemetr y/PCU Prognosis remains guarded High risk for bradycardia arrhythmia/ventricular arrhythmia, cardiac arrest Family aware Plan of care discussed with patient son power of civil attorney Emmanuel Chaudhry do not want pacemaker Patient is transitioned to hospice/palliative care QTC prolonged to more than 500 We will avoid medications which can lengthen QTC causing fatal arrhythmias: Do not use Haldol, Seroquel, Zyprexa Avoid Zofran (5) Syncope: Presents with syncopal episode, possible secondary to cardiac arrhythmia/sinus pause in the setting of acute AL Patient is at present transition to comfort care hospice-due to overall poor prognosis (6) CAD (coronary artery disease): Underlying coronary artery disease, presented with non-ST elevated AL, with severe ischemic cardiomyopathy: New finding Not a candidate for cardiac intervention/cardiac angiogram/PTCA Risk procedure, acute renal failure on CKD stage III, family does not want any invasive procedures/cardiac intervention, however of poor outcome Transition to hospice, comfort care (7) CKD (chronic kidney disease), stage III: Overall poor prognosis secondary to severe ischemic cardiomyopathy acute AL Hospice/palliative care appropriate (8) Left bundle branch block: New finding in the setting of acute non-ST elevated AL Noted to have sinus pause/cardiac arrhythmia Prognosis remains guarded (9) Dementia: Baseline advanced dementia On hospice comfort care PRN benzodiazepine utilized, Unable to use anti-psychiatric meds secondary to cardiac arrhythmia prolonged QTC CODE STATUS: DNR/DNI Disposition: Plan to transition care to long term with hospice care as bed is available Palliative care following appreciate input Social service consulted Subjective Patient remains obtunded, confused Open eyes briefly to voice, does not answer any question Sign of distress noted No shortness of breath, no cough Physical Exam Constitutional: no acute distress Respiratory: normal respiratory effort Musculoskeletal: Extremities: extremities normal to inspection Neurologic: + confused and + obtunded (1) CAD (coronary artery disease) Associated angina: without angina Coronary Disease-Associated Artery/Lesion type: [place] artery [place] vs. transplanted heart: [place] heart Qualified Code(s): I25.10 - Atherosclerotic heart disease of [place] coronary artery without angina pectoris (2) Dementia Dementia behavioral disturbance: with behavioral disturbance Dementia type: unspecified type Qualified Code(s): F03.91 - Unspecified dementia with behavioral disturbance (3) Syncope Syncope type: unspecified Qualified Code(s): R55 - Syncope and collapse
--- NOTE | 2019-01-28 14:13 | Discharge Summary ---
Date of Service January 28, 2019 Admission HPI Per Admitting Provider This is an 88-year-old female with a PMH of chronic systolic heart failure, valvular dysfunction, chronic left bundle branch block, CAD, Alzheimer's disease, CKD 3 and mood disorder who presents from [facility] personal care after a witnessed syncopal event this morning. History primarily obtained from family at bedside and staff from [facility] over the phone due to patient's advanced dementia. Staff is reportedly getting patient up this morning and ready for the day when she sat down on the toilet and then lost consciousness. Staff were able to keep her from falling and she became responsive with sternal rub after approximately 1 minute. Was sent to ED for further evaluation. Patient initially tachycardic at 126. Saturating at 96% on room air. No leukocytosis. Hemoglobin stable at 13.6. Creatinine slightly elevated from baseline at 1.3 (baseline ~1.1). Troponin elevated at 1.55. Difficult to obtain ROS due to patient's dementia but she denies pain of any kind, including headache, chest pain or abdominal pain. Per facility, patient is able to ambulate with walker at baseline and eat independently. Has poor p.o. intake at baseline and supplements with boost drink twice daily. Is currently at cognitive baseline, per staff. Family at bedside (including medical POA) confirmed DNR status as well as desired to avoid intervention when possible. Principal Diagnosis List of care/hospice/non-ST elevated CA/severe ischemic cardiomyopathy Discharge Exam Constitutional no acute distress Eyes + anicteric sclerae ENMT Ears: + hearing impairment Neck normal visual inspection Respiratory normal respiratory effort Cardiovascular Rate/Rhythm: regular rate and regular rhythm Gastrointestinal (Abdomen) normal bowel sounds, soft, nontender, no hepatosplenomegaly Musculoskeletal Extremities: extremities normal to inspection Skin no rashes, warm and dry Neurologic + confused and + obtunded Psychiatric Affect: + flat affect Discharge Data Allergies Allergy/AdvReac Type Severity Reaction Status Date / Time Bactrim Allergy Mild ukn Unverified 08/20/17 11:36 codeine Allergy Mild Unknown Verified 01/23/19 13:41 egg Allergy Mild ` Verified 01/23/19 13:41 morphine Allergy Mild ukn Verified 01/23/19 13:41 sulfamethoxazole Allergy Mild ukn Unverified 01/23/19 13:41 trimethoprim Allergy Mild ukn Unverified 01/23/19 13:41 EGG PRODUCTS Allergy Mild ukn Uncoded 01/23/19 13:41 FLU VACCINATION Allergy Unknown ukn Uncoded 01/23/19 13:41 Consultations 01/23/19 12:56 Consult Cardiology Stat ED Decision to Admit Stat 01/23/19 15:41 Consult Cardiology Routine Consult Case Management - Discharge Planning Routine 01/23/19 17:49 Consult Palliative Care Routine Ordered Studies 01/23/19 14:01 CT head/brain wo con Stat Hospital Course (1) Palliative care encounter: Patient remains in comfort care hospice, progress safe decline in cognitive and functional status noted Lethargic to have any p.o. intake, All p.o. meds: Aspirin statin discontinued Ordered PRN sublingual/IV Ativan for comfort care of the Appreciate input from palliative care Plan to transition to hospice care At [facility] Transfer to [facility] with hospice care today (2) Non-ST elevation CA (NSTEMI): Very poor prognosis, on comfort care hospice Presented with syncope, noted to have ST elevated CA with elevated troponin New left bundle branch block noted in EKG Resting echo 01/23/2019 shows new wall motion abnormality with worsening of ejection fraction 20% compared to 30 to 35% noted in echo 08/2018 Appreciate input from cardiology Given patient's advanced age and dementia, symptoms, conservative approach was recommended Developed 4-second sinus pause, Goal of care discussed with family After discussion the Son -power of patent prosecution attorney with cardiology, (Son does not want pacemaker, no invasive procedure,) wants patient to be comfortable aware of the poor prognosis Patient was transitioned to comfort care/ hospice, Palliative care team following Plan to transfer to jail with hospice care . (3) Metabolic encephalopathy: Remains confused/sedated Continue comfort care getting as needed Ativan for agitation/anxiety Baseline dementia, Developed worsening of mental status, severe agitation, combativeness, delirium- possible secondary to acute CA, severe ischemic cardiomyopathy, acute illness with change of surrounding Unable to utilize Haldol,-antipsychotics: Seroquel/Zyprexa-due to prolonged QTC QTC more than 500 on admission Will utilize long-acting Klonopin ordered for 1 mg p.o. twice daily PRN lorazepam/Ativan (short-acting) sublingual every 4 hours as needed for agitation Family understands goal of care, plan to transition to jail with hospice care (4) Sinus pause: Possible secondary to acute CA 4-second sinus pause noted yesterday 01/23/2019 while patient was in telemetry/PCU Prognosis remains guarded High risk for bradycardia arrhythmia/ventricular arrhythmia, cardiac arrest Family aware Plan of care discussed with patient son power of patent prosecution attorney Emmanuel Chaudhry do not want pacemaker Patient is transitioned to hospice/palliative care QTC prolonged to more than 500 We will avoid medications which can lengthen QTC causing fatal arrhythmias: Do not use Haldol, Seroquel, Zyprexa Avoid Zofran (5) Syncope: Presents with syncopal episode, possible secondary to cardiac arrhythmia/sinus pause in the setting of acute CA Patient is at present transition to comfort care hospice-due to overall poor prognosis (6) CAD (coronary artery disease): Underlying coronary artery disease, presented with non-ST elevated CA, with severe ischemic cardiomyopathy: New finding Not a candidate for cardiac intervention/cardiac angiogram/PTCA Risk procedure, acute renal failure on CKD stage III, family does not want any invasive procedures/cardiac intervention, however of poor outcome Transition to hospice, comfort care (7) CKD (chronic kidney disease), stage III: Overall poor prognosis secondary to severe ischemic cardiomyopathy acute CA Hospice/palliative care appropriate (8) Left bundle branch block: New finding in the setting of acute non-ST elevated CA Noted to have sinus pause/cardiac arrhythmia Prognosis remains guarded (9) Dementia: Baseline advanced dementia On hospice comfort care PRN benzodiazepine utilized, Unable to use anti-psychiatric meds secondary to cardiac arrhythmia prolonged QTC CODE STATUS: DNR/DNI Disposition: transfer to retirement [facility] with Hospice care Palliative care following appreciate input Social service consulted Total Time Total Time Spent Total Time Spent (In Minutes): Approximately 35-minute Total Time Includes: Examination of the Patient, Discharge Planning and Me dication Reconciliation Discharge Plan Discharge Items Patient Disposition: Hospice - Medical Facility Reason For Visit: SYNCOPE/ELEVATED TROPONIN Discharge Diagnosis: Non-ST elevated CA/severe cardiomyopathy/hospice palliative care Discharge Goals: Decrease discomfort Activity: As commented below Activity Comment: Bedrest/activity as tolerated Non-emergency contact: Primary Care Provider Call non-emergency contact if: your symptoms worsen Follow-up/Referrals: Dave, [Primary Care Provider] - Diet: Regular Diet Texture: Dental soft (bite-sized) Addtl Provider Instructions: Continue hospice/palliative care Prescriptions: New morphine concentrate 100 mg/5 mL (20 mg/mL) Solution 0.5 ml PO Q4 PRN (Reason: pain) Qty: 10 RF: 0 clonazepam 1 mg Tablet 1 mg PO BID 10 Days Qty: 20 RF: 0 lorazepam 1 mg Tablet 1 mg sublingual Q6 PRN (Reason: pain) 10 Days Qty: 40 RF: 0 Discontinued Ensure Liquid 180 ea PO BID RF: 0 pravastatin 40 mg Tablet 40 mg PO DAILY RF: 0 omeprazole 20 mg Capsule,Delayed Release(Dr/Ec) 20 mg PO DAILY RF: 0 levothyroxine 50 mcg Capsule 50 mcg PO DAILY RF: 0 acetaminophen 325 mg Tablet 650 mg PO Q4 PRN (Reason: Fever) RF: 0 donepezil 10 mg Tablet 10 mg PO DAILY RF: 0 isosorbide mononitrate 30 mg Tablet Extended Release 24 Hr 30 mg PO DAILY RF: 0 venlafaxine 150 mg Capsule,Extended Release 24hr 150 mg PO DAILY RF: 0 lorazepam 0.5 mg Tablet 0.5 mg PO DAILY RF: 0 aspirin [Aspirin Childrens] 81 mg Tablet,Chewable 81 mg PO DAILY RF: 0 metoprolol succinate 25 mg Tablet Extended Release 24 Hr 12.5 mg PO DAILY RF: 0 cholecalciferol (vitamin D3) [Vitamin D3] 1,000 unit Capsule 1,000 unit PO DAILY RF: 0 ezetimibe 10 mg Tablet 10 mg PO DAILY RF: 0 Stand-Alone Forms: [facility] Discharge Orders: Discharge Order (Routine); Ordered 01/28/19 Ordered By: Roseline Torres Admission Data Admit Date/Time: 01/23/19 13:59 Attending Provider: Roseline Torres Admit Provider: Roseline Torres [facility] Other Providers: Gregg Zhou ; Roseline Torres ; Loco Lovell ; Parveen Li ; Alexander Ling ; Minh Hallman ; Stanley Decker ; Loni Adan ; Deena Serrano ; Sabrina Lowery Service: Medical
== END 2019-01-28 20:09 | disposition hospice, inpatient (51) | DRG 280 ==
LOC: ED 11:13 → 2S 13:59 → 4E 20:52